=== PATIENT | female | born 1960 | race Caucasian/White ===

== ENCOUNTER 2020-03-02 08:28 | Outpatient (CLI) | payer BC, SELFPAY ==
--- NOTE | ~2020-03-02 | DEXA_ITS ---
Bone Density Report Name: Musa Kumar Age: 59 Sex: Female Ethnicity: White Date of : 1960 Indication: postmenopausal; prior fracture; Referring Provider: Froylan, Lisette Pereira Study: Bone densitometry was performed. Exam Date: March 02, 2020 Accession number: [id number] Bone Density: Region BMD T-score Z-score Classification AP Spine (L1-L4) 0.873 -1.6 -0.2 Osteopenia Femoral Neck (Left) 0.827 -0.2 1.1 Normal Total Hip (Left) 0.934 -0.1 0.9 Normal Total Hip Bilateral Avg 0.927 -0.2 0.8 Normal Femoral Neck (Right) 0.825 -0.2 1.1 Normal Total Hip (Right) 0.918 -0.2 0.8 Normal World Health Organization criteria for BMD impression classify patients as: Normal (T-score at or above -1.0), Osteopenia (T-score between -1.0 and -2.5), or Osteoporosis (T-score at or below -2.5). 10-year Fracture Risk(1): Major Osteoporotic Fracture 11% Hip Fracture 0.3% Reported Risk Factors: [place] (), Neck BMD=0.825, BMI=27.2, previous fracture (1) FRAX(R) Version 3.08. Fracture probability calculated for an untreated patient. Fracture probability may be lower if the patient has received treatment. Clinical Information Provided by Patient: Has had a low trauma fracture Has used the following medications: Calcium Patient maximum height was 63 Menopause Age: 44 No regular weight bearing exercise Drinks caffeinated beverages Onset of menses at age 14 Number of children 2 Impression: The patient has low bone mass, based on the Total Spine T-score. The patient has an estimated ten-year risk of hip fracture of 0.3% and an estimated ten-year risk of major fracture of 11%, based on the WHO FRAX algorithm. The patient has risk factors, including: previous fracture. Discussion: BONE DENSITY IS LOW AT ONE OR MORE SKELETAL SITES. This patient's lowest T-score is low at one or more skeletal sites. It meets the World Health Organization's (WHO) criteria for ?low bone mass? (T-score between -1.0 and -2.5). The patient's 10-year risk of fracture as calculated by FRAX is less than the threshold where pharmacological therapy is recommended by the National Osteoporosis Foundation (NOF). However, all treatment decisions require clinical judgment and consideration of individual patient factors, including patient preferences, comorbidities, previous drug use, risk factors not captured in the FRAX model (e.g., frailty, falls, vitamin D deficiency, increased bone turnover, interval significant decline in bone density) and possible under or overestimation of fracture risk by FRAX. The patient should follow a healthful lifestyle (good nutrition with adequate calcium and vitamin D, and appropriate weight-bearing exercise). Follow-Up: Consider repeating this study in 2 to 3 years to reassess this patient's status, or sooner if t
--- NOTE | ~2020-03-02 | MM_ITS ---
EXAMINATION: MM scrn jyothi implant BI w arik HISTORY: Screening mammogram TECHNIQUE: Craniocaudal and mediolateral oblique 3-D tomosynthesis images with implant displacement a nd synthetic 2-D images were generated. Craniocaudal and mediolateral oblique views of the breasts wi thout implant displacement were obtained using full field digital mammography. CAD analysis was submi tted and interpreted. COMPARISON: Comparison to multiple prior studies sequentially, with oldest reviewed study dated 12/18. BREAST PARENCHYMAL COMPOSITION: The breasts are heterogeneously dense, which may obscure small masses . FINDINGS: There are bilateral subglandular silicone implants. There is no evidence of suspicious mass , calcification, or architectural distortion to suggest malignancy in either breast. There has been n o suspicious interval change. IMPRESSION: 1. No mammographic evidence of malignancy. 2. Recommend routine screening mammography in one year. BI-RADS Category 1: Negative Reviewed, dictated and finalized at location A.
== END 2020-03-02 08:29 | disposition home or self-care (01) ==
LOC: ANHIMG 08:33
PROVIDERS: PCP Family Medicine; Visit Provider Nurse Practitioner Obstetrics & Gynecology
DX: Z12.31 Encounter for screening mammogram for malignant neoplasm of breast (principal); Z78.0 Asymptomatic menopausal state; M85.88 Other specified disorders of bone density and structure, other site
CPT/HCPCS: 77063; 77067; 77080

== ENCOUNTER 2021-04-19 09:03 | Outpatient (CLI) | payer BC, SELFPAY ==
--- NOTE | ~2021-04-19 | MM_ITS ---
EXAMINATION: MM scrn jyothi implant BI w arik HISTORY: Screening mammogram TECHNIQUE: Craniocaudal and mediolateral oblique 3-D tomosynthesis images with implant displacement a nd synthetic 2-D images were generated. Craniocaudal and mediolateral oblique views of the breasts wi thout implant displacement were obtained using full field digital mammography. CAD analysis was submi tted and interpreted. COMPARISON: Comparison to multiple prior studies sequentially, with oldest reviewed study dated 01/04. BREAST PARENCHYMAL COMPOSITION: There are scattered areas of fibroglandular density. FINDINGS: There are partially calcified bilateral subglandular silicone implants. There is no evidenc e of suspicious mass, calcification, or architectural distortion to suggest malignancy in either [address]. There has been no suspicious interval change. IMPRESSION: 1. No mammographic evidence of malignancy. 2. Recommend routine screening mammography in one year. BI-RADS Category 1: Negative Reviewed, dictated and finalized at location A.
== END 2021-04-19 09:04 | disposition home or self-care (01) ==
PROVIDERS: PCP Family Medicine; Visit Provider Nurse Practitioner Obstetrics & Gynecology
DX: Z12.31 Encounter for screening mammogram for malignant neoplasm of breast (principal)
CPT/HCPCS: 77063; 77067

== ENCOUNTER 2022-11-07 09:28 | Outpatient (CLI) | payer BC, SELFPAY ==
--- NOTE | ~2022-11-07 | MM_ITS ---
EXAMINATION: MM scrn jyothi implant BI w arik HISTORY: Screening mammogram TECHNIQUE: Craniocaudal and mediolateral oblique 3-D tomosynthesis images with implant displacement a nd synthetic 2-D images were generated. Craniocaudal and mediolateral oblique views of the breasts wi thout implant displacement were obtained using full field digital mammography. CAD analysis was submi tted and interpreted. COMPARISON: Comparison to multiple prior studies sequentially, with oldest reviewed study dated 01/04. BREAST PARENCHYMAL COMPOSITION: The breasts are heterogeneously dense, which may obscure small masses FINDINGS: There are bilateral subglandular partially calcified silicone implants. There is no evidenc e of suspicious mass, calcification, or architectural distortion to suggest malignancy in either [address]. There has been no suspicious interval change. IMPRESSION: 1. No mammographic evidence of malignancy. 2. Recommend routine screening mammography in one year. BI-RADS Category 1: Negative Reviewed, dictated and finalized at location A. 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
--- NOTE | ~2022-11-07 | DEXA_ITS ---
Bone Density Report Name: TEODORA ROSS Age: 61 Sex: Female Ethnicity: White Date of : 1960 Indication: postmenopausal; screening for osteoporosis; height loss; Referring Provider: HERI, ANNELIESE Pereira Study: Bone densitometry was performed. Exam Date: November 07, 2022 Accession number: [id number] Bone Density: Region BMD T-score Z-score Classification AP Spine(L1-L4) 0.904 -1.3 0.3 Osteopenia Femoral Neck (Left) 0.789 -0.5 0.9 Normal Total Hip (Left) 0.903 -0.3 0.8 Normal Femoral Neck (Right) 0.769 -0.7 0.7 Normal Total Hip (Right) 0.869 -0.6 0.5 Normal Total Hip Mean 0.886 -0.5 0.7 Normal World Health Organization criteria for BMD impression classify patients as: Normal (T-score at or above -1.0), Osteopenia (T-score between -1.0 and -2.5), or Osteoporosis (T-score at or below -2.5). 10-year Fracture Risk(1): Major Osteoporotic Fracture 7.3% Hip Fracture 0.4% Reported Risk Factors: [place] (), Neck BMD=0.769, BMI=24.7 (1) FRAX(R) Version 3.08. Fracture probability calculated for an untreated patient. Fracture probability may be lower if the patient has received treatment. Clinical Information Provided by Patient: Has used the following medications: Vitamin D, Calcium Patient maximum height was 63 Menopause Age: 44 Drinks caffeinated beverages Onset of menses at age 14 Number of children 2 Impression: The patient has low bone mass, based on the Total Spine T-score. The patient has an estimated ten-year risk of hip fracture of 0.4% and an estimated ten-year risk of major fracture of 7.3%, based on the WHO FRAX algorithm. Discussion: BONE DENSITY IS LOW AT ONE OR MORE SKELETAL SITES. This patient's lowest T-score is low at one or more skeletal sites. It meets the World Health Organization's (WHO) criteria for ?low bone mass? (T-score between -1.0 and -2.5). The patient's 10-year risk of fracture as calculated by FRAX is less than the threshold where pharmacological therapy is recommended by the National Osteoporosis Foundation (NOF). However, all treatment decisions require clinical judgment and consideration of individual patient factors, including patient preferences, comorbidities, previous drug use, risk factors not captured in the FRAX model (e.g., frailty, falls, vitamin D deficiency, increased bone turnover, interval significant decline in bone density) and possible under or overestimation of fracture risk by FRAX. The patient should follow a healthful lifestyle (good nutrition with adequate calcium and vitamin D, and appropriate weight-bearing exercise). Follow-Up: Consider repeating this study in 2 to 3 years to reassess this patient's status, or sooner if there is some new clinical indication. Reported by: SEB on 11/07/2022 10:00:00 A
== END 2022-11-07 09:29 | disposition home or self-care (01) ==
PROVIDERS: PCP Family Medicine; Visit Provider Nurse Practitioner Obstetrics & Gynecology
DX: Z12.31 Encounter for screening mammogram for malignant neoplasm of breast (principal); Z78.0 Asymptomatic menopausal state; M85.88 Other specified disorders of bone density and structure, other site
CPT/HCPCS: 77063; 77067; 77080

== ENCOUNTER 2023-10-16 14:27 | Outpatient (CLI) | payer BC, SELFPAY ==
--- NOTE | ~2023-10-16 | CT_ITS ---
EXAMINATION: CT sinus wo con DATE: 10/16/2023 15:07 INDICATION: Chronic sinusitis, headache, dizziness. TECHNIQUE: Computed tomography (CT) of the paranasal sinuses was performed without intravenous contra st. The dose-length product (DLP) was 313.83 mGy-cm. Iterative reconstruction was used. COMPARISON: None FINDINGS: There is normal development and pneumatization of the paranasal sinuses. The frontal, sphen oid, ethmoid, and maxillary sinuses are clear. The bilateral ostiomeatal complexes are patent. Visual ized soft tissues are unremarkable. Trace bilateral mastoid fluid. Degenerative changes in the bilate ral TMJs. IMPRESSION: Normal paranasal sinus findings. Trace bilateral mastoid effusions. Bilateral TMJ osteoarthritis. Reviewed, dictated and finalized at location K. 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
== END 2023-10-16 14:28 | disposition home or self-care (01) ==
PROVIDERS: PCP Family Medicine; Visit Provider Nurse Practitioner Family
DX: J32.9 Chronic sinusitis, unspecified (principal); M19.09 Primary osteoarthritis, other specified site
CPT/HCPCS: 70486

== ENCOUNTER 2023-11-08 10:12 | Outpatient (CLI) | payer BC, SELFPAY ==
--- NOTE | ~2023-11-08 | MM_ITS ---
EXAMINATION: MM scrn jyothi implant BI w arik HISTORY: Screening mammogram TECHNIQUE: Craniocaudal and mediolateral oblique 3-D tomosynthesis images with implant displacement a nd synthetic 2-D images were generated. Craniocaudal and mediolateral oblique views of the breasts wi thout implant displacement were obtained using full field digital mammography. CAD analysis was submi tted and interpreted. COMPARISON: 11/07/2022, 04/19/2021, 03/02/2020 bilateral implant screening mammogram examinations BREAST PARENCHYMAL COMPOSITION: The breasts are heterogeneously dense, which may obscure small masses . FINDINGS: Status post bilateral augmentation mammoplasty, with prominent calcifications along the per iphery of both implants. There is no evidence of suspicious mass, calcification, or architectural dis tortion to suggest malignancy in either breast. There has been no suspicious interval change. IMPRESSION: 1. No mammographic evidence of malignancy. 2. Recommend routine screening mammography in one year. BI-RADS Category 1: Negative Reviewed, dictated and finalized at location A. 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
== END 2023-11-08 10:13 | disposition home or self-care (01) ==
PROVIDERS: PCP Family Medicine; Visit Provider Nurse Practitioner
DX: Z12.31 Encounter for screening mammogram for malignant neoplasm of breast (principal)
CPT/HCPCS: 77063; 77067

== ENCOUNTER 2024-11-10 08:18 | Outpatient (CLI) | payer BC, SELFPAY ==
--- NOTE | ~2024-11-10 | DEXA_ITS ---
Bone Density Report Name: TEODORA ROSS Age: 63 Sex: Female Ethnicity: White Date of : 1960 Indication: osteopenia; height loss; Referring Provider: SUBHASH AGUIRRE Study: Bone densitometry was performed. Exam Date: November 10, 2024 Accession number: [id number] Bone Density: Region BMD T-score Z-score Classification AP Spine(L1-L4) 0.871 -1.6 0.2 Osteopenia Femoral Neck (Left) 0.755 -0.9 0.7 Normal Total Hip (Left) 0.851 -0.7 0.5 Normal Femoral Neck (Right) 0.740 -1.0 0.5 Normal Total Hip (Right) 0.825 -1.0 0.3 Normal Total Hip Mean 0.838 -0.9 0.4 Normal World Health Organization criteria for BMD impression classify patients as: Normal (T-score at or above -1.0), Osteopenia (T-score between -1.0 and -2.5), or Osteoporosis (T-score at or below -2.5). 10-year Fracture Risk(1): Major Osteoporotic Fracture 7.6% Hip Fracture 0.6% Reported Risk Factors: [place] (), Neck BMD=0.740, BMI=23.2 (1) FRAX(R) Version 3.08. Fracture probability calculated for an untreated patient. Fracture probability may be lower if the patient has received treatment. Previous Exams: Region Exam Age BMD T-score BMD Change BMD Change Date g/cm2 vs Baseline vs Previous AP Spine (L1-L4) 11/10/2024 63 0.871 -1.6 -0.002 (-0.3%) -0.033 (-3.7%) 11/07/2022 61 0.904 -1.3 0.031 (3.5%)* 0.031 (3.5%)* 03/02/2020 59 0.873 -1.6 Total Hip(Left) 11/10/2024 63 0.851 -0.7 -0.083 (-8.9%) -0.051 (-5.7%) 11/07/2022 61 0.903 -0.3 -0.031 (-3.4%) -0.031 (-3.4%) 03/02/2020 59 0.934 -0.1 Total Hip(Right) 11/10/2024 63 0.825 -1.0 -0.093 (-10.1% -0.044 (-5.0%) 11/07/2022 61 0.869 -0.6 -0.049 (-5.3%) -0.049 (-5.3%) 03/02/2020 59 0.918 -0.2 *Denotes significance at 95% confidence level, LSC for AP Spine = 0.022 g/cm2, LSC for Total Hip = 0.027 g/cm2 # Denotes dissimilar scan types or analysis methods Clinical Information Provided by Patient: Has used the following medications: Vitamin D, Calcium Patient maximum height was 63 Menopause Age: 44 Drinks caffeinated beverages Onset of menses at age 14 Number of children 2 Impression: The patient has low bone mass, based on the Total Spine T-score. The patient has an estimated ten-year risk of hip fracture of 0.6% and an estimated ten-year risk of major fracture of 7.6%, based on the WHO FRAX algorithm. No significant bone loss was observed. Discussion: BONE DENSITY IS LOW AT ONE OR MORE SKELETAL SITES. This patient's lowest T-score is low at one or more skeletal sites. It meets the World Health Organization's (WHO) criteria for ?low bone mass? (T-score between -1.0 and -2.5). The patient's 10-year risk of fracture as calculated by FRAX is less than the threshold where pharmacological therapy is recommended by the National Osteoporosis Foundation (NOF). However, all treatment decisions require clinical judgment and consideration of individual patient factors, including patient preferences, comorbidities, previous drug use, risk factors not captured in the FRAX model (e.g., frailty, falls, vitamin D deficiency, increased bone turnover, interval significant decline in bone density) and possible under or overestimation of fracture risk by FRAX. The patient should follow a healthful lifestyle (good nutrition with adequate calcium and vitamin D, and appropriate weight-bearing exercise). Follow-Up: Consider repeating this study in 2 to 3 years to reassess this patient's status, or sooner if there is some new clinical indication. Reported by: MAURO on 11/10/2024 9:10:00 AM. Reviewed, dictated and finalized at location AGypsy DUFFY
--- NOTE | ~2024-11-10 | MM_ITS ---
EXAMINATION TYPE: MM scrn yuri implant BI w arik COMPARISON: NONE REASON FOR STUDY: SCREENING YURI TECHNIQUE: Bilateral mediolateral oblique and craniocaudal views were obtained digitally with 3-D ma mmogram (digital breast tomosynthesis) with CAD. Computer-aided detection was utilized in evaluation of this examination. Implant displaced views were also performed. BREAST PARENCHYMAL COMPOSITION:Dense: The breasts are extremely dense, which lowers the sensitivity o f mammography. FINDINGS: Stable parenchymal pattern without discrete mass, architectural distortion or suspicious microcalcifi cations. Punctate calcifications are present, vascular in origin and benign in appearance. IMPRESSION: No mammographic or tomographic evidence to suggest the presence of malignancy. BI-RADS CATEGORY: BI-RADS Category 2: Benign findings. RECOMMENDATION: Yearly mammography is suggested. Reviewed, dictated and finalized at location A. 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
--- OUTSIDE RECORDS SUMMARY | 2024-11-17 17:44 | XMS_ITS | Data Portability ---
Author Organization [facility] [place] Address [address] [place] [address] Care Team Providers Care Communications Billing Analyst Name Role Phone KHUSHI BURKS Primary Care Provider [phone] Assessment Encounter Date Assessment Date Assessment LastModified by Organization Details LastModified Time 03/09/2021 03/09/2021 Annual gynecological exam performed. Patient will come back in a year unless there are new symptoms. Not available 03/09/2021 09:30:06 04/12/2022 04/12/2022 Annual gynecological exam performed. Patient will come back in a year unless there are new symptoms. [email or web address] Not available 04/12/2022 10:01:55 05/30/2023 05/30/2023 Annual gynecological exam performed. Patient will come back in a year unless there are new symptoms. [email or web address] Not available 05/30/2023 11:18:48 06/19/2024 06/19/2024 Annual gynecological exam performed. Patient will come back in a year unless there are new symptoms. Not available 06/19/2024 11:42:00 Plan of Treatment Reminders Order Date Submit Date Provider Last Modified By Organization Details Last Modified Time Details Appointments None recorded . Lab None recorded . Referral None recorded . Procedures None recorded . Surgeries None recorded . Imaging MAMMO, screenin g, digital, bilatera l [address] [facility], [address], [place], [address], 15:52:56 DEXA, axial skeleton + vertebra l fracture assessme nt [email or web address] [place] [address], [address], [place], [address], 4 15:52:56 Medication Orders fluoxeti ne 40 mg capsule 2020 021 [facility] [address], [id number] [place] [address], [address], 1 10:12:01 Premarin 0.625 mg/gram vaginal cream [address] [facility] [address], [address] [place] [address], [address], 3 11:19:26 valacycl ovir 500 mg tablet 2021 022 [facility] [address], [address] [place] [address], [address], 2 10:19:51 fluoxeti ne 40 mg capsule 2021 022 [facility] [address], [id number] [place] [address], [address], 2 10:16:08 valacycl ovir 500 mg tablet 2021 022 [facility] [address], [address] [place] [address], [address], 2 10:39:59 valacycl ovir 1 gram tablet 2023 024 [facility] [address], [id number] [place] [address], [address], 4 12:14:19 fluoxeti ne 40 mg capsule 2023 024 [facility] [address], [id number] [place] [address], [address], 4 12:16:52 Patient TargetsNo targets recorded. Patient InstructionsNo instructions recorded. Reason for Referral None Reported. Results Created Date Observation Date Name Description Value Unit Range Abnormal Flag Note LastModifiedBy Organization Detail LastModifiedTime 05/30/20 23 05/30/2023 IMAGE GUIDE D PAP AND HPV REGAR DLESS image guided Pap, HPV regardless of Pap result SEE RESULT S BELOW CASE REPOR T: Cytol ogy Gynec ologi phylicia Repor t Case: [id number] Aut[employer] willis cotton Provi miriam: Julieth Malagon, DENISE Colle cted: 05/30 1349 Order ing Locat ion: [place] [facility] Recei chito: 05/31 0617 First Scree n: Michael Calix, CT Rescr een: Janey Castellano, CT Speci men: Zander denton Pap - Image d, Cervi x STATE MENT OF ADEQU ACY: Satis facto ry for evalu ation Trans forma tion zone compo nent canno t be defin itive ly ident ified due to the prese nce of atrop hy or other hormo nal floyd es FINAL DIAGN OSIS: Negat manan for Intra epith elial Lesio n or Sunday delong (NIL) . Atrop hic cell bentley rhodes. Jacob cho wong d by Janey Castellano, CT on 2022 at 9:07 AM ----- ----- ----- ----- ----- ----- ----- ----- ----- ----- ----- ----- ----- ----- ----- ----- ----- ---- HPV RESUL TS: HPV mRNA E6/E7 : No HPV mRNA Detec eulalio NOTE: This high risk HPV mRNA assay detec ts fourt een high- risk HPV types (16, 18, 31, 33, 35, 39, 45, 51, 52, 56, 58, 59, 66, 68) witho ut diffe renti ation . COMME NT: This speci men was revie wed by a Cytot echno logis t and/o r Patho logis t (as indic ated in this repor t) after evalu ation using the Thinp rep Imagi ng Syste m. CLINI PHYLICIA INFOR MATIO N: Menst rual Statu s: LMP (if appli cable ): Clini phylicia Histo ry/Pr eviou s Pap: Type of Neopl nani (if appli cable ): Signi fican t Clini phylicia Findi ngs: Other Histo ry: Hormo joão (if appli cable ): PAP EDUCA MARIA FERNANDA L NOTE: The Pap Test is a scree corrie test with an inher ent false negat manan rate. Liqui d-bas ed sampl ing may decre ase, but will not elimi sindhu, false negat manan resul ts. A negat manan resul t does not precl ude the prese nce and/o r devel opmen t of disea se, since the prese nce of abnor mal cells in the sampl e depen ds on the locat ion of the lesio n and sampl ing techn ique. Cici nued regul ar scree corrie is the best metho d of cance r preve ntion . If repor eulalio cytol ogic findi ng do not corre late with physi phylicia and/o r histo rical findi ngs, furth er inves tigat ion is recom zonia d, as clini robyn warrshanell nted. Not Available [facility] (Lab) [address] [facility], [place], [address], 06/01/2023 10:10:43 06/19/20 24 06/19/2024 IMAGE GUIDE D PAP AND HPV REGAR DLESS image guided Pap, HPV regardless of Pap result SEE RESULT S BELOW CASE REPOR T: Cytol ogy Gynec ologi phylicia Repor t Case: [id number] Autho willis g Provi miriam: Madhuri Cordero MD Colle cted: 06/19 1425 Order ing Locat ion: [place] Path[facility] [place] Recei chito: 06/20 0050 First Scree n: Janey Castellano ay, CT Speci men: Scree corrie Pap - Image d, Cervi x STATE MENT OF ADEQU ACY: Satis facto ry for evalu ation Trans forma tion zone compo nent canno t be defin itive ly ident ified due to the prese nce of atrop hy or other hormo nal floyd es ----- ----- ----- ----- ----- ----- ----- ----- ----- ----- ----- ----- ----- ----- ----- ----- ----- ---- FINAL DIAGN OSIS: Negat manan for Intra epith elial Lesio n or Sunday delong (NIL) . Atrop hic holly hagan rn. Elect eulogio lainez by Janey Castellano, CT on 024 at 9:01 AM ----- ----- ----- ----- ----- ----- ----- ----- ----- ----- ----- ----- ----- ----- ----- ----- ----- ---- HPV RESUL TS: HPV mRNA E6/E7 : No HPV mRNA Detec eulalio NOTE: This high risk HPV mRNA assay detec ts fourt een high- risk HPV types (16, 18, 31, 33, 35, 39, 45, 51, 52, 56, 58, 59, 66, 68) witho ut diffe renti ation . COMME NT: This speci men was revie wed by a Cytot echno logis t and/o r Patho logis t (as indic ated in this repor t) after evalu ation using the Thinp rep Imagi ng Syste m. CLINI PHYLICIA INFOR MATIO N: Menst rual Statu s: LMP (if appli cable ): Clini phylicia Histo ry/Pr eviou s Pap: Type of Neopl nani (if appli cable ): Signi jaimie t Clini phylicia Findi ngs: Other Histo ry: Hormo joão (if appli cable ): PAP EDUCA MARIA FERNANDA L NOTE: The Pap Test is a scree corrie test with an inher ent false negat manan rate. Liqui d-bas ed sampl ing may decre ase, but will not elimi sindhu, false negat manan resul ts. A negat manan resul t does not precl ude the prese nce and/o r devel opmen t of disea se, since the prese nce of abnor mal cells in the sampl e depen ds on the locat ion of the lesio n and sampl ing techn ique. Cici nued regul ar scree corrie is the best metho d of cance r preve ntion . If repor eulalio cytol ogic findi ng do not corre late with physi phylicia and/o r histo rical findi ngs, furth er inves tigat ion is recom zonia d, as clini robyn mariee nted. Not Available [facility] ([facility]) [address] [facility], [place], [address], 06/26/2024 10:06:28 04/22/20 21 MAMMO , scree corrie, bilat eral No observ ation record ed. [facility] [address], [place], [address], 04/28/2021 22:40:00 11/07/20 22 11/07/2022 MAMMO , scree corrie, bilat eral No observ ation record ed. [address] [address], [place], [address], 2022 11:11:47 11/10/20 24 11/10/2024 MAMMO , scree corrie, bilat eral No observ ation record ed. [address], [address], 11/10/2024 16:38:28 11/13/20 24 11/10/2024 DEXA, axial skele ton + verte bral fract ure asses sment No observ ation record ed. [email or web address], [address], 11/13/2024 20:27:24 Result Notes None recorded. Problems Name Problem SNOMED Code Status Onset Date Resolution Date Notes Provider Name and Address Organization Details Recorded Time Screenin g for malignan t neoplasm of cervix Completed 201104/11/2022 Pap Smear;Pra ctice ID: 0001 Delilah Chow [facility] 2 16:19:41 Screenin g for malignan t neoplasm of rectum Completed 201104/11/2022 Screening for malignant neoplasms of the rectum;Pr actice ID: 0001 Delilah Chow [facility] 2 16:19:42 Leukocyt osis [id number] Completed 201304/11/2022 LEUKOCYTO SIS NOS;Pract ice ID: 0001 Delilah Chow [facility] 2 16:19:41 Speciali zed medical examinat ion Completed 201304/11/2022 Routine gynecolog ical examinati on;Practi ce ID: 0001 Delilah Chow [facility] 2 16:19:42 Urinary tract infectio us disease [id number] Completed 201404/11/2022 Urinary tract infection , site not specified ;Practice ID: 0001 Delilah park [facility] 2 16:19:42 Microsco pic hematuri a [id number] Completed 201404/11/2022 HEMATURIA MICROSCOP IC;Practi ce ID: 0001 Delilah Chow [facility] 2 16:19:41 Adult health examinat ion Completed 201404/11/2022 Routine general medical examinati on at a health care facility; Practice ID: 0001 Delilah Chow [facility] 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 2 16:19:[address] Concept Completed 201804/11/2022 Encntr for general adult medical exam w/o abnormal findings; Recorded Elsewhere : No Locati on: [facility] So urce: EHR Chron ic: N Practic e ID: 0001 Bill able Time: 09:30:00 AM Delilah Chow [facility] 2 16:19:42 Atypical squamous cells of undeterm ined signific ance on cervical Papanico laou smear [id number] Completed 201404/11/2022 Papanicol aou smear of cervix with atypical squamous cells of undetermi beata significa nce (ASC-US); Recorded Elsewhere : No Locati on: [facility] So urce: EHR Chron ic: N Practic e ID: 0001 Bill able Time: 10:00:00 AM Delilah Chow [facility] 2 16:19:42 Atypical glandula r cells on cervical Papanico laou smear [id number] Completed 201404/11/2022 Abnormal glandular Papanicol aou smear of cervix;Re corded Elsewhere : No Locati on: [facility] So urce: EHR Chron ic: N Practic e ID: 0001 Bill able Time: 10:00:00 AM Delilah Chow [facility] 2 16:19:42 Increase d frequenc y of urinatio n [id number] Completed 201404/11/2022 Urinary frequency ;Recorded Elsewhere : No Locati on: [facility] So urce: EHR Chron ic: N Practic e ID: 0001 Bill able Time: 02:45:00 PM Delilah Chow [facility] 2 16:19:41 Screenin g for malignan t neoplasm of colon Completed 201004/11/2022 Special screening for malignant neoplasms , colon;Pra ctice ID: 0001 Delilah Chow [facility] 2 16:19:41 Urinary incontin ence [id number] Completed 201004/11/2022 Urinary incontine nce, unspecifi ed;Practi ce ID: 0001 Delilah Chow [facility], [facility] 2 16:19:41 Problem Notes None recorded. Procedures Surgical History Date Name Laterality Status Provider Name and Address Organization Details Recorded Time 10/19/20 23 Date of Last Mammogram completed [facility] 06/19/2024 11:45:07 05/30/20 23 Date of Last Pap Smear completed Wendy [facility] 06/19/2024 11:44:15 02/18/20 20 completed Lisette Galeano, [facility]- [address], [place], [address], [facility] 03/09/2021 10:12:50 laparoscopic sleeve gastrectomy completed Stefani [facility] 02/25/2020 10:29:31 augmentation mammoplasty completed Stefani Alves [facility] 02/25/2020 10:29:46 Bariatric Surgery completed Kristen Charles [facility] 03/09/2021 09:31:25 Imaging Results Imaging Date Name Status LastModified by Organiz ation Details LastModified Time 04/22/2021 MAMMO, screening, bilateral completed [facility] [address], [place], [address], 04/28/2021 22:40:00 11/07/2022 MAMMO, screening, bilateral completed [facility] [address], [place], [address], 2022 11:11:47 11/10/2024 MAMMO, screening, bilateral completed [facility] [address], [place], [address], 11/10/2024 16:38:28 11/10/2024 DEXA, axial skeleton + vertebral fracture assessment active [address] [facility] [address], [place], [address], 11/13/2024 20:27:24 Procedure Notes None recorded. Medical Equipment None Reported. Allergies No known drug allergies Medications Name Sig Start Date Stop Date Status Note LastModified by Organization Details LastModified Time fluoxetin e 40 mg capsule TAKE 1 CAPSULE BY MOUTH ONCE DAILY IN THE MORNING 2023 active Not Available Not Available Not Avai lable azithromy angelita 250 mg tablet TAKE 2 TABLETS BY MOUTH ON DAY 1, AND THEN TAKE 1 TABLET BY MOUTH ONCE A DAY ON DAY 2 THROUGH DAY 5 05/30 completed Not Available Not Available Not Available Vitamin B-1 50 mg tablet 02/12 completed Prescrib ed Elsewher e: Yes Loca tion: [facility] odify By: reta Vazquez r DateTime : 12/10/19 14 10:30:00 AM Not Available Not Available Not Available metoprolo l succinate ER 50 mg tablet,ex tended release 24 hr take 1 tablet by oral route every day 02/12 completed Prescrib ed Elsewher e: Yes Loca tion: [facility] odify By: reta Vazquez r DateTime : 12/14/19 15 10:30:00 AM Not Available Not Available Not Available valacyclo vir 1 gram tablet TAKE 1 TABLET BY MOUTH EVERY 12 HOURS active Not Available Not Available No t Available phentermi ne 15 mg capsule TAKE 1 CAPSULE BY MOUTH ONCE DAILY BEFORE BREAKFAS T 04/12 completed Not Available Not Available Not Available folic acid 20 mg capsule 12/14 completed Prescrib ed Elsewher e: Yes [facility] By: lara prince DateTime : 12/10/19 14 10:30:00 AM Not Available Not Available Not Available Detrol LA 4 mg capsule,e xtended release take 1 capsule (4MG) by oral route every day 02/12 completed Prescrib ed Elsewher e: No Locat ion: [facility] odify By: reta Vazquez r DateTime : 12/15/19 16 10:00:00 AM Not Available Not Available Not Available valacyclo vir 500 mg tablet TAKE 1 TABLET BY MOUTH ONCE DAILY WITH A MEAL active Not Available Not Available No t Available phentermi ne 30 mg capsule TAKE 1 CAPSULE BY MOUTH ONCE DAILY BEFORE BREAKFAS T 04/12 completed Not Available Not Available Not Available omeprazol e 10 mg capsule,d elayed release take 2 capsule by oral route every day before a meal 12/10 completed Prescrib ed Elsewher e: Yes Loca tion: [facility] odify By: lara prince DateTime : 07/04/20 12 10:00:00 AM Not Available Not Available Not Available Cipro 500 mg tablet take 1 tablet by oral route every 12 hours 02/12 completed Prescrib ed Elsewher e: No Locat ion: [facility] odify By: reta bailey DateTime : 07/05/20 15 04:22:29 PM Not Available Not Available Not Available buspirone 10 mg tablet TAKE 1 TABLET BY MOUTH TWICE DAILY active Not Available Not Available No t Available garlic capsule 12/10 completed Prescrib ed Elsewher e: Yes Loca tion: [facility] odify By: lara prince DateTime : 07/03/20 12 11:10:07 AM Not Available Not Available Not Available buspirone 7.5 mg tablet 02/24 completed Not Available Not Available Not Available furosemid e 20 mg tablet take 1 tablet (20MG) by oral route every day 02/12 completed Prescrib ed Elsewher e: Yes Loca tion: [facility] odify By: reta Vazquez r DateTime : 12/10/19 14 10:30:00 AM Not Available Not Available Not Available cefdinir 300 mg capsule TAKE 1 CAPSULE BY MOUTH EVERY 12 HOURS FOR 10 DAYS 04/12 completed Not Available Not Available Not Available multivita min capsule Take by oral route. 05/30 completed Not Available Not Available Not Available amoxicill in 875 mg-potass ium clavulana te 125 mg tablet TAKE 1 TABLET BY MOUTH TWICE DAILY 06/19 completed Not Available Not Available Not Available Bactrim DS 800 mg-160 mg tablet take 1 tablet by oral route every 12 hours 07/05 completed Prescrib ed Elsewher e: No Locat ion: [facility] odify By: evgeny thacker DateTime : 06/29/20 15 10:00:00 AM Not Available Not Available Not Available Allergy Medicine 25 mg capsule take 2 capsule by oral route every 4 - 6 hours as needed 05/30 completed Prescrib ed Elsewher e: Yes [facility] By: lynn thacker DateTime : 02/18/20 19 09:30:00 AM Not Available Not Available Not Available Calcium 500 + D 500 mg-5 mcg (200 unit) tablet 05/30 completed Prescrib ed Elsewher e: Yes Loca tion: [facility] odify By: lynn thacker DateTime : 02/18/20 19 09:30:00 AM Not Available Not Available Not Available Premarin 0.625 mg/gram vaginal cream Insert 0.5gm vaginall y at bedtime nightly x 14 nights; then, use 2x/wk for maintena nce. 05/30 completed Not Available Not Available Not Available nitrofura ntoin monohydra te/macroc rystals 100 mg capsule TAKE 1 CAPSULE BY MOUTH EVERY 12 HOURS WITH MEALS 03/09 completed Not Available Not Available Not Available Vesicare 5 mg tablet take 1 tablet (5MG) by oral route every 12 hours 12/10 completed Prescrib ed Elsewher e: No Locat ion: [facility] odify By: lara prince DateTime : 07/03/20 12 11:10:07 AM Not Available Not Available Not Available Infuvite Adult 3300 unit-150 mcg/10 mL intraveno us solution 12/10 completed Prescrib ed Elsewher e: Yes Loca tion: [facility] odify By: lara prince DateTime : 07/03/20 12 11:10:07 AM Not Available Not Available Not Available Calcio Marce 500 mg tablet 12/10 completed Prescrib ed Elsewher e: Yes Loca tion: [facility] odify By: lara prince DateTime : 07/03/20 12 11:10:07 AM Not Available Not Available Not Available fluoxetin e 03/08 completed Not Available Not Available Not Available buspirone 03/09 completed Not Available Not Available Not Available Calcium 500 03/09 completed Not Available Not Available Not Available Keflex 750 mg capsule take 1 capsule (750MG) by oral route 2 times every day 12/10 completed Prescrib ed Elsewher e: No Locat ion: [facility] odify By: lara prince DateTime : 08/12/20 12 09:10:55 AM Not Available Not Available Not Available B Complex 1.7 mg-20 mg-2 mg-1.2 mg/mL sublingua l liquid 12/10 completed Prescrib ed Elsewher e: Yes Loca tion: [facility] odify By: lara prince DateTime : 07/04/20 12 10:00:00 AM Not Available Not Available Not Available 10 mg-[address] by Topical route every USE ASS NEEDED WITH INTERCOU RSE 02/12 completed Prescrib ed Elsewher e: Yes Loca tion: [facility] odify By: reta Vazquez r DateTime : 12/10/19 14 10:30:00 AM Not Available Not Available Not Available Claritin Liqui-Gel 10 mg capsule 02/12 completed Prescrib ed Elsewher e: Yes Loca tion: [facility] odify By: reta Vazquez r DateTime : 12/14/19 15 10:30:00 AM Not Available Not Available Not Available Fish Oil 100 mg-160 mg-1,000 mg capsule 12/10 completed Prescrib ed Elsewher e: Yes Loca tion: [facility] odify By: lara prince DateTime : 07/03/20 12 11:10:07 AM Not Available Not Available Not Available Multi Vitamin 9 mg iron/15 mL oral liquid 04/12 completed Prescrib ed Elsewher e: Yes Loca tion: [facility] odify By: lynn thacker DateTime : 02/18/20 19 09:30:00 AM Not Available Not Available Not Available Allergy 03/09 completed Not Available Not Available Not Available 24 Hour Allergy Relief 50 mcg/actua tion nasal spray,ary pension 05/30 completed Not Available Not Available Not Available Shingrix (PF) 50 mcg/0.5 mL intramusc ular suspensio n, kit 02/24 completed Not Available Not Available Not Available Fluzone Quad (PF) 60 mcg (15 mcg x 4)/0.5 mL IM syringe 02/24 completed Not Available Not Available Not Available Vitals Date Recorded Body height Body mass index (BMI) Body weight Systolic blood pressure Diastolic blood pressure Provider Name and Address Organization Details Last Updated DateTime 03/09/2021 157.48 cm 27.3 kg/m2 97980.26 g 135 mm[Hg] 81 mm[Hg] Kristen Araceli [facility] 1 09:40:06 Date Recorded Body height Body mass index (BMI) Body weight Systolic blood pressure Diastolic blood pressure Provider Name and Address Organization Details Last Updated DateTime 04/12/2022 155.58 cm 25.5 kg/m2 85021.56 g 128 mm[Hg] 78 mm[Hg] [facility] 10:03:27 Date Recorded Body height Body weight Body mass index (BMI) Provider Name and Address Organization Details Last Updated DateTime 07/13/2022 155.58 cm 77369.07 g 24.9 kg/m2 Delilah [facility] 07/13/2022 10:31:42 Date Recorded Systolic blood pressure Diastolic blood pressure Provider Name and Address Organization Details Last Updated DateTime 07/13/2022 122 mm[Hg] 82 mm[Hg] Lisette Galeano, [facility]- [address], [place], [address], [facility] 07/13/2022 14:05:36 Date Recorded Body height Body mass index (BMI) Body weight Systolic blood pressure Diastolic blood pressure Provider Name and Address Organization Details Last Updated DateTime 05/30/2023 155.58 cm 23.8 kg/m2 02274.23 g 127 mm[Hg] 76 mm[Hg] Catherine Li [facility] 3 11:19:04 Date Recorded Body height Body mass index (BMI) Body weight Systolic blood pressure Diastolic blood pressure Provider Name and Address Organization Details Last Updated DateTime 06/19/2024 155.58 cm 23.4 kg/m2 42649.05 g 137 mm[Hg] 73 mm[Hg] Wendy Green [facility] 4 11:43:27 Social History Question Answer Notes LastModified by Organizat ion Details LastModified Time Tobacco Smoking Status Never Smoker [place], [facility] 05/30/2023 10:50:59 Do You Have An Advance Directive? No Information n ot available 03/09/2021 What Is Your Level Of Alcohol Consumption? None Information not available 03/09/2021 Are You Blind Or Do You Have Difficulty Seeing? No Information n ot available 03/09/2021 What Is Your Level Of Caffeine Consumption? Moderate Information not available 03/09/2021 How Much Tobacco Do You Chew? None Information not available 03/09/2021 In The 14 Days Before Symptom Onset, Have You Had Close Contact With A Laboratory-confirm ed COVID-19 While That Case Was Ill? No Information n ot available 03/09/2021 In The 14 Days Before Symptom Onset, Have You Had Close Contact With A Person Who Is Under Investigation For COVID-19 While That Person Was Ill? No Information not available 03/09/2021 Have You Been To An Area Known To Be High Risk For COVID-19? No Information not available 03/09/2021 Are You Deaf Or Do You Have Serious Difficulty Hearing? No Information not available 03/09/2021 What Type Of Diet Are You Following? REGULAR Information n ot available 03/09/2021 What Is The Highest Grade Or Level Of School You Have Completed Or The Highest Degree You Have Received? [id number] Information not available 03/09/2021 What Is Your Occupation? Retired Information not available 03/09/2021 Are There Any Guns Present In Your Home? Yes Information not available 03/09/2021 Do You Use Protection During Sex? No Information not available 03/09/2021 Do You Use Your Seat Belt Or Car Seat Routinely? Yes Information not available 03/09/2021 Do You Have Smoke And Carbon Monoxide Detectors In Your Home? Yes Information not available 03/09/2021 How Much Tobacco Do You Smoke? No Information not available 03/09/2021 Do You Feel Stressed (tense, Restless, Nervous, Or Anxious, Or Unable To Sleep At Night)? [id number] Information not available 03/09/2021 Do You Use Any Illicit Or Recreational Drugs? No Information not available 03/09/2021 Do You Use Sunscreen Routinely? Yes Information not available 03/09/2021 Have You Used IV Drugs? No Information not available 03/09/2021 Sex: Unknown Functional Status Question Answer Note LastModified by Organizat ion Details LastModified Time Do you have difficulty walking or climbing stairs? No Information not available 05/30/2023 Are you able to walk? YESWOREST Information not available 03/09/2021 Are you able to care for yourself? Yes [email or web address] Information not available 05/30/2023 Do you have difficulty dressing or bathing? No [email or web address] Information not available 05/30/2023 What is your exercise level? Moderate Information not available 06/19/2024 Mental Status None recorded. Family History Relationship Description Onset Age of this Age Resolved Age Notes LastModified by Organization Details LastModified Time Mother Diabetes mellitus [email or web address] Not available 2019 10:30:41 Maternal Grandmother Type 1 diabetes mellitus Not available 2023 11:01:21 Maternal Aunt Malignant tumor of breast 45 [email or web address] Not available 2023 11:01:21 Paternal Aunt Malignant tumor of ovary 60 [email or web address] Not available 2023 11:01:21 Medical History Condition Response History of abnormal pap Y Hypertension Y Gynecological History Statement/Question Response Abnormal Pap Yes Date of Last Mammogram 10/19/2023 Date of LMP 07/03/2006 On BCP's at Conception? N N STIs/STDs N HPV Vaccine N 15 Current Control Method Menopause Age at First Child 18 If Post Menopausal, Age at Menopause Date of Last Colonoscopy Sexually Active? Y Menses Monthly N Date of DEXA bone scan 03/02/2020 Age of first menstrual cycle 12 Date of Last Pap Smear 05/30/2023 Sexual Problems? Y 02/18/2020 N Obstetrics History GPAL:G 2 P 0 0 0 2 Type Value Living 2 Total 2 Past Encounters Encounter ID Performer Location Encounter Start Date Encounter Closed Date Diagnosis/Indication Diagnosis SNOMED-CT Code Diagnosis ICD10 Code [id number] Lisette Galeano [facility] [address],[place] [address] 02/25/2020 10:19:33 02/26/2020 13:03:31 Menopausal symptom 77130327 N95.1 Routine gy necologic examination done 4350581717 9101 Z01.419 Menopausal flushing 1983 58929 N95.1 [id number] Lisette Galeano [facility] [address] [place] [address] 03/09/2021 09:26:33 03/09/2021 10:18:50 Gynecologic examination 43995209 Z01.419 Generalize d anxiety disorder 59684910 F41.1 N95.1 [id number] Lisette Galeano [facility] [address],[place] [address] 04/12/2022 09:36:42 04/12/2022 10:33:59 Gynecologic examination 42325553 Z01.419 Depressive disorder 3548 9007 F32.A Herpes zoster 1345201 B0 2.9 Dyspareunia 62144408 N94 .10 N95.2 [id number] Lisette Galeano , [facility] [address],[place] [address] 07/13/2022 10:19:11 07/13/2022 14:13:44 Herpes zoster 0464304 B02.9 Dyspareunia 30180545 N94 .10 N95.2 [id number] Julieth Malagon, [facility] [address],[place] [address] 05/30/2023 10:50:47 05/30/2023 12:22:44 Screening for malignant neoplasm of breast 505929331 Z12.39 Screening for malignant neoplasm of colon 248775259 Z12.11 Screening for osteoporosis 221401640 Z13.820 Gynecologi c examination 81470161 Z01.419 [id number] Awais Cordero MD [place] [address],[place] [address] 06/19/2024 11:00:38 06/19/2024 12:27:14 Herpes zoster 0215212 B02.9 Depressive disorder 3548 9007 F32.A Gynecologi c examination 51824697 Z01.419 Health Concerns Section Related Observation LastModified by Organization Detai ls LastModified Time None Recorded Concern Status LastModified by Organization Details LastModified Time None Recorded Advance Directives Directive N: Payers Encounter Date Sequence Insurance Name Policy Number Policy Gordon Covered Member ID Gordon Member ID Guarantor Name 03/09/2021 1 [place] [id number] Jacek Hammer Kumar [id number] Jacek Kumar 04/12/2022 1 [id number] Jacek Hammer Kumar [id number] Jacek Kumar 07/13/2022 1 [place] [id number] Jacek Hammer Kumar [id number] Jacek Kumar 05/30/2023 1 [place] [id number] Jacek Kumar [id number] Jacek Kumar 06/19/2024 1 [facility] ([place] [id number] Jacek Kumar [id number] Jacek Kumar Notes Date Note Type Note Provider Name and Address Organization Details Recorded Time 03/09/2021 text/html 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 Post-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 ed bypatient.Menopausal Symptoms:no menopausal symptoms; normal vaginal lubrication Vaginal Bleeding:history of menopause having occurred; no history of post menopausal bleeding Urinary Symptoms:no hematuria; no incontinence; no nocturia; no urinary frequency Vulva:no genital lesion; no vulvar atrophy Vagina:normal vaginal discharge; no vaginal atrophy Breast:no breast lump; no nipple discharge; no breast pain Sexual Complaints:no sexual complaints Psychological Symptoms:no depression; no anxiety Preventive Measures:encourage regular mammograms starting age 40; encourage self breast examination; encourage regular exercise; encourage no tobacco use; needs to schedule mammogram; history of recent colonoscopy; Dexa 2020 one point of osteopenia. LAKSHMI Liao [address], [place], [address], [facility] 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 ed bypatient.Menopausal Symptoms:no menopausal symptoms; normal vaginal lubrication Vaginal Bleeding:history of menopause having occurred; no history of post menopausal bleeding Urinary Symptoms:no hematuria; no incontinence; no nocturia; no urinary frequency Vulva:no genital lesion; no vulvar atrophy Vagina:normal vaginal discharge; no vaginal atrophy Breast:no breast lump; no nipple discharge; no breast pain Sexual Complaints:no sexual complaints;pain during intercourse Psychological Symptoms:no depression; no anxiety Preventive Measures:encourage regular mammograms starting age 40; encourage self breast examination; encourage regular exercise; encourage no tobacco use; needs to schedule mammogram; history of recent colonoscopy; needs to schedule bone density Having shingles outbreaksGot vaccinationLower back one small areaHappens during high stress times LAKSHMI Liao [address], [place], [address], [facility] 04/12/2022 10:33:09 07/13/2022 text/html Here today for medication check. CHARLINE Liao- [address], [place], [address], [facility] 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 bypatient.Menopausal Symptoms:no menopausal symptoms; normal vaginal lubrication Vaginal Bleeding:history of menopause having occurred; no history of post menopausal bleeding Urinary Symptoms:no hematuria; no incontinence; no nocturia; no urinary frequency Vulva:no genital lesion; no vulvar atrophy Vagina:normal vaginal discharge; no vaginal atrophy Breast:no breast lump; no nipple discharge; no breast pain Sexual Complaints:no sexual complaints Psychological Symptoms:no depression; no anxiety Preventive Measures:encourage regular mammograms starting age 40; encourage self breast examination; encourage regular exercise; encourage no tobacco use; needs to schedule mammogram; needs to schedule colonoscopy; needs to schedule bone density CHARLINE Carbajal [address], [place], [address], [facility] 05/30/2023 12:18:43 06/19/2024 text/html Annual GYNReport ed bypatient.History:no gynecologic complaints Urinary symptoms:No hematuria Vulva:No genital lesion Vagina:Normal vaginal discharge Breast:No breast pain; No breast lump Sexual complaints:No sexual complaints Menopausal Symptoms:No menopausal symptoms Psychological symptoms:Anxiety; treated Preventive measures:Encourage self breast examination; Encourage regular exercise Awais Cordero MD [address], [place], [address], [facility] 06/19/2024 12:24:57 OBGyn Episode Ob Episode Information Episode Created Date Number of Fetuses Patient Bloodtype Patient rh Status Prepregnancy Weight lbs Domestic Partner Domestic Partner Phone Father Name Manager Lsw Status 02/25/20 20 1 CLOSED Fetus Data First Name Last Name Admitted to NICU Weight (g) Sex Living Outcome Pediatric Complications Fetus ID Race Codes Race Delivery Type 3628.73 6 F 104 Primary Jaqui Calculation JAQUI Calculation Method Initial Jaqui Date Initial Exam Date Initial Exam Provider Initial Ultrasound Date Last Menstrual Period Date Ultra Sound Weeks Gestation Conception by IVF Embryo Age at Transfer Date of Transfer 0 Eighteen To Twenty Week Jaqui Update Ultra Sound Date Fundal Height At Umbil Quickening Date Ultra Sound Latest Weeks Gestation Final Jaqui Confirmed By Final Jaqui Confirmed Date Final Jaqui Date Ultra Sound Latest Days Gestation 0 0 Menstrual History Last Menstrual Date Menses Monthly On Bcp Conception Prior Menses Frequency Hcg Plus Date Menarche Onset Age Delivery Information Delivery Date Delivery Type Labor Anesthesia Weeks Gestation Incision Type Labor Labor Length Hrs Delivered By Post Complications Tubal Sterilization Discharge Date Comments 4 Discharge Information Feeding Method Contraceptive Method Maternal HG B and HCT Levels Ob Episode Information Episode Created Date Number of Fetuses Patient Bloodtype Patient rh Status Prepregnancy Weight lbs Domestic Partner Domestic Partner Phone Father Name Manager Lsw Status 02/25/20 20 1 CLOSED Fetus Data First Name Last Name Admitted to NICU Weight (g) Sex Living Outcome Pediatric Complications Fetus ID Race Codes Race Delivery Type 4819.41 5 M 106 Vaginal Delivery Jaqui Calculation JAQUI Calculation Method Initial Jaqui Date Initial Exam Date Initial Exam Provider Initial Ultrasound Date Last Menstrual Period Date Ultra Sound Weeks Gestation Conception by IVF Embryo Age at Transfer Date of Transfer 0 Eighteen To Twenty Week Jaqui Update Ultra Sound Date Fundal Height At Umbil Quickening Date Ultra Sound Latest Weeks Gestation Final Jaqui Confirmed By Final Jaqui Confirmed Date Final Jaqui Date Ultra Sound Latest Days Gestation 0 0 Menstrual History Last Menstrual Date Menses Monthly On Bcp Conception Prior Menses Frequency Hcg Plus Date Menarche Onset Age Delivery Information Delivery Date Delivery Type Labor Anesthesia Weeks Gestation Incision Type Labor Labor Length Hrs Delivered By Post Complications Tubal Sterilization Discharge Date Comments 9 Discharge Information Feeding Method Contraceptive Method Maternal HG B and HCT Levels Ob Episode Information Episode Created Date Number of Fetuses Patient Bloodtype Patient rh Status Prepregnancy Weight lbs Domestic Partner Domestic Partner Phone Father Name Manager Lsw Status 02/25/20 20 1 DELETED Jaqui Calculation JAQUI Calculation Method Initial Jaqui Date Initial Exam Date Initial Exam Provider Initial Ultrasound Date Last Menstrual Period Date Ultra Sound Weeks Gestation Conception by IVF Embryo Age at Transfer Date of Transfer 0 Eighteen To Twenty Week Jaqui Update Ultra Sound Date Fundal Height At Umbil Quickening Date Ultra Sound Latest Weeks Gestation Final Jaqui Confirmed By Final Jaqui Confirmed Date Final Jaqui Date Ultra Sound Latest Days Gestation 0 0 Menstrual History Last Menstrual Date Menses Monthly On Bcp Conception Prior Menses Frequency Hcg Plus Date Menarche Onset Age Delivery Information Delivery Date Delivery Type Labor Anesthesia Weeks Gestation Incision Type Labor Labor Length Hrs Delivered By Post Complications Tubal Sterilization Discharge Date Comments 4 adopted Discharge Information Feeding Method Contraceptive Method Maternal HG B and HCT Levels
== END 2024-11-10 08:19 | disposition home or self-care (01) ==
PROVIDERS: PCP Family Medicine; Visit Provider Obstetrics & Gynecology
DX: Z12.31 Encounter for screening mammogram for malignant neoplasm of breast (principal); M85.88 Other specified disorders of bone density and structure, other site; Z13.820 Encounter for screening for osteoporosis
CPT/HCPCS: 77063; 77067; 77080

== ENCOUNTER 2025-02-02 11:03 | Outpatient (CLI) | payer BC, SELFPAY ==
--- NOTE | ~2025-02-02 | XR_ITS ---
XR cervical spine 4-5V Ordering provider: Kevin Dean History: . (w obliques) Neck pain . Comparison: None. FINDINGS: VERTEBRAL BODIES: Normal height and alignment. No visible fracture or subluxation. The dens is intact . DISK SPACES: Degenerative disc changes seen at the level of C4-C5. Narrowing of the disc space at the level of C3-C4, C4-C5, C5-C6 and C6-C7. Multilevel facet joint disease. Multilevel uncovertebral ethan nt osteoarthritic changes. Narrowing of the left foramina at the level of C2-C3, C3-C4 and C4-C5. PARASPINOUS SOFT TISSUES: No prevertebral soft tissue swelling. IMPRESSION: No acute osseous abnormality cervical spine. Multilevel degenerative disc disease. Reviewed, dictated and finalized at location A.
--- OUTSIDE RECORDS SUMMARY | 2025-02-02 13:46 | XMS_ITS | Referral Summary ---
Author Organization [facility] Address [address] [place] [address] Care Team Providers Care Public Health Advisor Name Role Phone Anurag Beasley MD Primary Care Provider [phone] [facility],non-owned Affiliates and Associated Physician Practices is amultiple site organization consisting of ambulatory clinics and hospital sitesin [place], [place], [place] and [place]. This disclosure is being madepursuant to the Care Everywhere program and may not contain all information available regarding this patient. Last updated 18.[facility] Allergies Active Allergy Reactions Criticality Noted Date Comments Sulfacetamide Nausea and/or Vomiting Low 02/26/2024 Medications * Be aware that medications may not be up to date on this document. Alwaysverify current medications with the patient. Medication Sig Dispensed Refills Start Date End Date Status FLUoxetine (PROzac) 40 MG capsule Take 1 (one) capsule by mouth once daily Active multivitamin daily (THERAGRAN) tablet Take 1 (one) tablet by mouth once daily Active Other Take 1 Each by mouth once daily bariatric1 Active calcium carbonate-vitamin D 600-200 MG-UNIT tablet Take 1 (one) tablet by mouth 2 times daily Active Vitamin D, Cholecalciferol, 25 MCG (1000 UT) CAPS Take by mouth 2 times daily Active busPIRone (BUSPAR) 10 MG tablet Take 1 (one) tablet by mouth as needed Active cranberry (CRANBERRY) 400 MG tablet Take 1 (one) tablet by mouth once daily Active Multiple Vitamins-Minerals (HAIR SKIN NAILS PO) Acti ve TURMERIC PO Active valACYclovir (Valtrex) 500 MG tablet 04/12/2022 Active diphenhydrAMINE (Benadryl) 25 MG capsule Take 1 (one) capsule by mouth as directed Active Active Problems Problem Noted Date Diagnosed Date Allergic rhinitis due to grass pollen 04/09/2024 Urinary incontinence 06/19/2011 02/27/2024 Overview (02/27/2024): Urinary incontinence, unspecified;Practice ID: [id number] Immunizations Name Administration Dates Next Due INFLUENZA VACCINE, QUADR. (F LUZONE; FLULAVAL; FLUARIX; AFLURIA QUADRIVALENT; 6MO+), 0.5 ML (IIV4) 09/26/2019,09/07/2018 TDAP (7yrs+) 05/24/2017 Zoster Hzv Vacc Recombinant Inj Im 04/06/2020, iNFLUENZA VACCINE, RECOM-MACHUCA, QUADR. (FLUBLOCK QUADRIVALENT; 18Y+) (RIV4) 08/12/2020 Social History Tobacco Use Types Packs/Day Years Used Date Smoking Tobacco: Former Cigarettes 0 12/07/1996 - 12/07/2016 Smokeless Tobacco: Never Tobacco Cessation:Counseling Given: Not Answered Alcohol Use Standard Drinks/Week Comments No 0 (1 standard drink = 0.6 oz pur e alcohol) Sex and Gender Information Value Date Recorded Sex Assigned at Not on file Gender Identity Not on file Sexual Orientation Not on file Last Filed Vital Signs Vital Sign Reading Time Taken Comments Blood Pressure 122/74 06/22/2022 12:20 PM CDT Pulse 71 06/22/2022 12:20 PM CDT Temperature 36.3 C (97.4 F) 08/16/2021 10:25 AM CDT Respiratory Rate 16 06/26/2017 3:13 PM CDT Oxygen Saturation 98% 06/22/2022 12:20 PM CDT Inhaled Oxygen Concentration - - Weight 54.4 kg (120 lb) 02/26/2024 10:14 AM CDT Height 157.5 cm (5' 2 ) 02/26/2024 10:14 AM CDT Body Mass Index 21.95 02/26/2024 10:14 AM CDT Functional Status Functional Status Response Date of Assess ment Is person deaf or have serious hearing difficult y? No 06/25/2017 Is person blind or have serious difficulty seein g? No 06/25/2017 Does person have serious dif ficulty walking/climbing stairs? No 06/25/2017 Does person have difficulty dressing/bathing? No 06/25/2017 Does person have difficulty doing errands alone? No 06/25/2017 Cognitive Status Response Date of Assessm ent Does person have difficulty concentrating/remembering/making decisions? No 06/25/2017 Plan of Treatment Not on file Advance Directives * Full Code (Latest Code Status on File) Date Activated Date Inactivated Comments 06/25/2017 1:38 PM 06/26/2017 6:26 PM Care Teams Public Health Advisor Relationship Specialty Start Date End Date Anurag Beasley MD [address] [place] [address] PCP - General Family Medicine 04/09/24
--- OUTSIDE RECORDS SUMMARY | 2025-02-02 13:46 | XMS_ITS | Clinical Summary ---
Author Organization [facility] Address [address] Attn: Epic Prelude ADT JUSTIN SILVA [address] Care Team Providers Care Central Office Worker Name Role Phone Anurag Beasley MD Primary Care Provider [phone] Active Problems Patient Care Coordination No te Formatting of this note migh t be different from the original. PCP: Dr. Lopez Harris - [place], [place]. 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 Gender Identity Not on file Sexual Orientation Not on file Plan of Treatment Health Maintenance Due Date Last Done Comments DTAP/TDAP/TD VACCINES (1 - Tdap) 1978 BREAST CANCER SCREENING 1999 COLORECTAL SCREENING 2004 Colorectal Cancer Screening 2004 FIT-DNA Q 3 years 2004 FIT/FOBT Q 1 year 2004 Flex Sig/CT Colonography Q 5 years 2004 PNEUMOCOCCAL VACCINE 50+ YEA RS (1 of 1 - PCV) 2009 ZOSTER VACCINE (1 of 2) 2009 CERVICAL CANCER SCREENING 02/12/20212017, 02/06/2017, 12/15/2015 INFLUENZA VACCINE (#1) 2024 RSV VACCINE (60+ or ) (1 - 1-dose 75+ series) 2034 OSTEOPOROSIS SCREENING Completed 03/02/2020, 2016 Care Teams Central Office Worker Relationship Specialty Start Date End Date Anurag Beasley MD [address] [place] [address] PCP - General Family Practice 02/16/21
--- OUTSIDE RECORDS SUMMARY | 2025-02-02 13:46 | XMS_ITS | Clinical Summary ---
Author Organization [facility] Address [address] [place] [address] Care Team Providers Care Stream Control Officer Name Role Phone Unavailable Primary Care Provider Unavailabl e Social History Tobacco Use Types Packs/Day Years Used Date Smoking Tobacco: Never Assessed Comments Unknown Sex and Gender Information Value Date Recorded Sex Assigned at Not on file Legal Sex Female 7:25 PM CDT Gender Identity Not on file Sexual Orientation Not on file Plan of Treatment Health Maintenance Due Date Last Done Comments Cervical Cancer Screening Pa p Smear (Age 30 to 64) Every 3 Years 1959 Colorectal Cancer Screening Colonoscopy (10 Years) 1959 Annual Physical 1962 Hepatitis C 1977 DTaP, Tdap and Td Vaccines ( 1 - Tdap) 1978 Cervical Cancer Screening Pa p with HPV Testing (Age 30 to 64) Every 5 Years 1989 Cervical Cancer Screening with HPV 1989 Mammogram Screening 1999 Zoster Vaccines (1 of 2) 2009 COVID-19 Vaccine ( - 2023-2 5 season) 2024 Influenza Adult (#1) 2024 Dexa Scan (General) 2024 Pneumococcal Vaccine: 65+ Ye ars (1 of 1 - PCV) 2024 RSV Immunization or 60+ Years (1 - 1-dose 75+ series) 2034 Meningococcal B Vaccine Aged Out No l onger eligible based on patient's age to complete this topic Meningococcal Vaccine Aged Out No patricia keenan eligible based on patient's age to complete this topic Pneumococcal Vaccine: Pediat rics (0 to 5 Years) and At-Risk Patients (6 to 64 Years) Aged Out No longer eligible b ased on patient's age to complete this topic RSV Immunizations Under 20 Months Aged Out No longer eligible based on patient's age to complete this topic
--- OUTSIDE RECORDS SUMMARY | 2025-02-02 13:46 | XMS_ITS | Clinical Summary ---
Author Organization [facility] Address [address] [place] [address] Care Team Providers Care Memorial Adviser Name Role Phone Anurag Beasley MD Primary Care Provider [phone] Source Comments [facility],non-owned Affiliates and Associated Physician Practices is amultiple site organization consisting of ambulatory clinics and hospital sitesin [place], [place], [place] and [place]. This disclosure is being madepursuant to the Care Everywhere program and may not contain all information available regarding this patient. Last updated 18.[facility] Allergies Active Allergy Reactions Criticality Noted Date [...] RECOM-MACHUCA, QUADR. (FLUBLOCK QUADRIVALENT; 18Y+) (RIV4) 08/12/2020 Family History Medical History Relation Name Comments Arthritis - Rheumatoid Daughter Cancer - Other Father Cancer - Other Mother Diabetes Mother Relation Name Status Comments Daughter Father Mother Social History Tobacco Use Types Packs/Day Years [...] Mass Index 21.95 02/26/2024 10:14 AM CDT Plan of Treatment Health Maintenance Due Date Last Done Comments BONE DENSITY TESTING 1959 COLOGUARD (AGES 45-75) - COL ON CA SCREENING 1959 COLON MONITORING 1959 COLONOSCOPY - COLON CA SCREENING 1959 CT COLONOGRAPHY - COLON CA SCREENING 1959 Colorectal Cancer Screening 1959 FIT - COLON CA SCREENING 1959 FLEX SIG - COLON CA SCREENING 1959 LIPID TESTING 1959 MAMMOGRAM 1959 HIV SCREENING 1974 HEPATITIS C SCREENING 11/18/1977 PNEUMOCOCCAL VACCINE 50+ (1 of 1 - PCV) 2009 COVID-19 VACCINE (4 - 2023-2 5 season) 2024 10/16/2021, 03/08/2021, 02/13/2021 INFLUENZA VACCINE (#1) 2024 , 09/26/2019, 09/07/2018 DEPRESSION SCREENING 11/19/2024 PAP SMEAR 05/30/2026 05/30/2023 DTAP/TDAP/TD VACCINES (2 - T d or Tdap) 05/24/2027 05/24/2017 Respiratory Syncytial Virus (RSV) Vaccine Pt: or over 60 yrs (1 - 1-dose 75+ series) 2034 ZOSTER VACCINE Completed 04/06/2020, 01/19/2020 HEPATITIS B VACCINE Aged Out No longe r eligible based on patient's age to complete this topic HIB VACCINE Aged Out No longer eligi ble based on patient's age to complete this topic HPV VACCINE Aged Out No longer eligi ble based on patient's age to complete this topic MENINGOCOCCAL (Group B) VACCINE SHARED DECISION-MAKING Aged Out No longer eligible based on patient's age to complete this topic MENINGOCOCCAL GROUPS A/C/Y/W VACCINE Aged Out No longer eligible b ased on patient's age to complete this topic Advance Directives * Full Code (Latest Code Status on File) Date Activated Date Inactivated Comments 06/25/2017 1:38 PM 06/26/2017 6:26 PM Care Teams Memorial Adviser Relationship Specialty Start Date End Date Anurag Beasley MD [address] [place] [address] PCP - General Family Medicine 04/09/24
--- OUTSIDE RECORDS SUMMARY | 2025-02-02 13:46 | XMS_ITS | Patient Health Summary ---
Author Organization [facility] Address [address] [place] [address] Care Team Providers Care Fluid Pump Operator Name Role Phone Anurag Beasley MD Primary Care Provider [phone] Note from [facility],non-owned Affiliates and Associated Physician Practices is amultiple site organization consisting of ambulatory clinics and hospital sitesin [place], [place], [place]. This disclosure is being madepursuant to the Care Everywhere program and may not contain all information available regarding this patient. Last updated 18.[facility] Allergies * Sulfacetamide(Nausea and/or Vomiting) -Low Criticality * Penicillins(Urticaria) -Medium Criticality,Inactive Medications * Be aware that medications may not be up to date on this document. Alwaysverify current medications with the patient. * FLUoxetine (PROzac) 40 MG capsule Take 1 (one) capsule by mouth once daily * multivitamin daily (THERAGRAN) tablet Take 1 (one) tablet by mouth once daily * Other Take 1 Each by mouth once daily bariatric1 * calcium carbonate-vitamin D 600-200 MG-UNIT tablet Take 1 (one) tablet by mouth 2 times daily * Vitamin D, Cholecalciferol, 25 MCG (1000 UT) CAPS Take by mouth 2 times daily * busPIRone (BUSPAR) 10 MG tablet Take 1 (one) tablet by mouth as needed * cranberry (CRANBERRY) 400 MG tablet Take 1 (one) tablet by mouth once daily * Multiple Vitamins-Minerals (HAIR SKIN NAILS PO) * TURMERIC PO * valACYclovir (Valtrex) 500 MG tablet(Started 04/12/2022) * diphenhydrAMINE (Benadryl) 25 MG capsule Take 1 (one) capsule by mouth as directed Active Problems Problem Noted Date Diagnosed Date Allergic rhinitis due to grass pollen 04/09/2024 Urinary incontinence 06/19/2011 02/27/2024 Immunizations * INFLUENZA VACCINE, QUADR. (FLUZONE; FLULAVAL; FLUARIX; AFLURIA QUADRIVALENT; 6MO+), 0.5 ML (IIV4)(Given 09/26/2019, 09/07/2018) * TDAP (7yrs+)(Given 05/24/2017) * Zoster Hzv Vacc Recombinant Inj Im(Given 04/06/2020, 01/19/2020) * iNFLUENZA VACCINE, RECOM-MACHUCA, QUADR. (FLUBLOCK QUADRIVALENT; 18Y+) (RIV4)(Given 08/12/2020) Social History Tobacco Use Types Packs/Day Years [...] Mass Index 21.95 02/26/2024 10:14 AM CDT Procedures * VITAMIN D 25-HYDROXY(Performed 07/05/2022) Performed for Bariatric surgery status, Vitamin deficiency, Mineral deficiency, Vitamin D deficiency, Vitamin B deficiency * VITAMIN B12(Performed 07/05/2022) Performed for Bariatric surgery status, Vitamin deficiency, Mineral deficiency, Vitamin D deficiency, Vitamin B deficiency * VITAMIN B1(Performed 07/05/2022) Performed for Bariatric surgery status, Vitamin deficiency, Mineral deficiency, Vitamin D deficiency, Vitamin B deficiency * COMPREHENSIVE METABOLIC PANEL(Performed 07/05/2022) Performed for Bariatric surgery status, Vitamin deficiency, Mineral deficiency, Vitamin D deficiency, Vitamin B deficiency * CBC W/O DIFFERENTIAL(Performed 07/05/2022) Performed for Bariatric surgery status, Vitamin deficiency, Mineral deficiency, Vitamin D deficiency, Vitamin B deficiency * VITAMIN D 25-HYDROXY(Performed 08/16/2021) Performed for Bariatric surgery status, Vitamin deficiency, Mineral deficiency, Vitamin D deficiency * VITAMIN B12(Performed 08/16/2021) Performed for Bariatric surgery status, Vitamin deficiency, Mineral deficiency, Vitamin D deficiency * VITAMIN B1(Performed 08/16/2021) Performed for Bariatric surgery status, Vitamin deficiency, Mineral deficiency, Vitamin D deficiency * COMPREHENSIVE METABOLIC PANEL(Performed 08/16/2021) Performed for Bariatric surgery status, Vitamin deficiency, Mineral deficiency, Vitamin D deficiency * CBC W/O DIFFERENTIAL(Performed 08/16/2021) Performed for Bariatric surgery status, Vitamin deficiency, Mineral deficiency, Vitamin D deficiency * VITAMIN D 25-HYDROXY(Performed 05/14/2020) Performed for Bariatric surgery status, Vitamin deficiency, Mineral deficiency, Vitamin D deficiency * VITAMIN B12(Performed 05/14/2020) Performed for Bariatric surgery status, Vitamin deficiency, Mineral deficiency, Vitamin D deficiency * VITAMIN B1(Performed 05/14/2020) Performed for Bariatric surgery status, Vitamin deficiency, Mineral deficiency, Vitamin D deficiency * COMPREHENSIVE METABOLIC PANEL(Performed 05/14/2020) Performed for Bariatric surgery status, Vitamin deficiency, Mineral deficiency, Vitamin D deficiency * CBC W/O DIFFERENTIAL(Performed 05/14/2020) Performed for Bariatric surgery status, Vitamin deficiency, Mineral deficiency, Vitamin D deficiency * BLOOD TYPE ABO+ RH PANEL(Performed 06/25/2019) Performed for Bariatric surgery status, Vitamin deficiency, Mineral deficiency, Vitamin D deficiency * VITAMIN D 25-HYDROXY(Performed 06/25/2019) Performed for Bariatric surgery status, Vitamin deficiency, Mineral deficiency, Vitamin D deficiency * VITAMIN B12(Performed 06/25/2019) Performed for Bariatric surgery status, Vitamin deficiency, Mineral deficiency, Vitamin D deficiency * VITAMIN B1(Performed 06/25/2019) Performed for Bariatric surgery status, Vitamin deficiency, Mineral deficiency, Vitamin D deficiency * COMPREHENSIVE METABOLIC PANEL(Performed 06/25/2019) Performed for Bariatric surgery status, Vitamin deficiency, Mineral deficiency, Vitamin D deficiency * CBC W/O DIFFERENTIAL(Performed 06/25/2019) Performed for Bariatric surgery status, Vitamin deficiency, Mineral deficiency, Vitamin D deficiency * VITAMIN D 25-HYDROXY(Performed 06/25/2018) Performed for Bariatric surgery status, Vitamin deficiency, Mineral deficiency, Vitamin D deficiency * VITAMIN B12(Performed 06/25/2018) Performed for Bariatric surgery status, Vitamin deficiency, Mineral deficiency, Vitamin D deficiency * VITAMIN B1(Performed 06/25/2018) Performed for Bariatric surgery status, Vitamin deficiency, Mineral deficiency, Vitamin D deficiency * COMPREHENSIVE METABOLIC PANEL(Performed 06/25/2018) Performed for Bariatric surgery status, Vitamin deficiency, Mineral deficiency, Vitamin D deficiency * CBC W/O DIFFERENTIAL(Performed 06/25/2018) Performed for Bariatric surgery status, Vitamin deficiency, Mineral deficiency, Vitamin D deficiency * REF LAB-SPECIMEN STATUS REPORT(Performed 12/25/2017) * VITAMIN D 25-HYDROXY(Performed 12/25/2017) Performed for Bariatric surgery status, Class 1 obesity with body mass index (BMI) of 30.0 to 30.9 in adult, unspecified obesity type, unspecified whether serious comorbidity present, Vitamin deficiency, Mineral deficiency, Vitamin D deficiency * VITAMIN B12(Performed 12/25/2017) Performed for Bariatric surgery status, Class 1 obesity with body mass index (BMI) of 30.0 to 30.9 in adult, unspecified obesity type, unspecified whether serious comorbidity present, Vitamin deficiency, Mineral deficiency, Vitamin D deficiency * VITAMIN B1(Performed 12/25/2017) Performed for Bariatric surgery status, Class 1 obesity with body mass index (BMI) of 30.0 to 30.9 in adult, unspecified obesity type, unspecified whether serious comorbidity present, Vitamin deficiency, Mineral deficiency, Vitamin D deficiency * COMPREHENSIVE METABOLIC PANEL(Performed 12/25/2017) Performed for Bariatric surgery status, Class 1 obesity with body mass index (BMI) of 30.0 to 30.9 in adult, unspecified obesity type, unspecified whether serious comorbidity present, Vitamin deficiency, Mineral deficiency, Vitamin D deficiency * CBC W/O DIFFERENTIAL(Performed 12/25/2017) Performed for Bariatric surgery status, Class 1 obesity with body mass index (BMI) of 30.0 to 30.9 in adult, unspecified obesity type, unspecified whether serious comorbidity present, Vitamin deficiency, Mineral deficiency, Vitamin D deficiency * FL FLUORO UPPER GI TRACT + KUB(Performed 06/26/2017) Performed for S/P gastrectomy * HGB HCT PANEL(Performed 06/26/2017) * GLUCOSE - POINT OF CARE(Performed 06/26/2017) * GLUCOSE - POINT OF CARE(Performed 06/26/2017) * VITAMIN D 25-HYDROXY(Performed 06/26/2017) * CBC W AUTO DIFFERENTIAL(Performed 06/26/2017) * BASIC METABOLIC PANEL (CALCIUM TOTAL)(Performed 06/26/2017) * GLUCOSE - POINT OF CARE(Performed 06/25/2017) * GLUCOSE - POINT OF CARE(Performed 06/25/2017) * PATHOLOGY TISSUE EXAM (STL)(Performed 06/25/2017) Performed for Fatty liver * LAPAROSCOPIC BIOPSY LIVER(Performed 06/25/2017) * LAPAROSCOPIC GASTRECTOMY (LONGITUDINAL/SLEEVE)(Performed 06/25/2017) * VITAMIN B12(Performed 06/05/2017) Performed for Preop examination * VITAMIN B1(Performed 06/05/2017) Performed for Preop examination * COMPREHENSIVE METABOLIC PANEL(Performed 06/05/2017) Performed for Preop examination * CBC W AUTO DIFFERENTIAL(Performed 06/05/2017) Performed for Preop examination * EKG 12-LEAD(Performed 06/05/2017) Performed for Preop examination * CANNABINOIDS URINE CONFIRMATION(Performed 05/04/2017) Performed for Preop examination * URINE DRUG SCREEN IMMUNOASSAY(Performed 05/04/2017) Performed for Preop examination * URINE DRUG SCREEN IMMUNOASSAY(Performed 03/06/2017) Performed for Preop examination * EGD(Performed 11/08/2016) * HELICOBACTER PYLORI UREASE (STL)(Performed 11/08/2016) Performed for Diagnosis unknown * PATHOLOGY TISSUE EXAM (STL)(Performed 11/08/2016) Performed for Diagnosis unknown * ESOPHAGOGASTRODUODENOSCOPY (EGD) DIAGNOSTIC(Performed 11/08/2016) Results * VITAMIN B1 (07/05/2022 9:16 AM CDT) Only the most recent of7 resultswithin the time period is included. Vitamin B1 Whole Blood 134 78 - 185 nmol/L [facility] Comment: Vitamin supplementation within 24 hours prior to blood draw may affect the accuracy of results. This test was developed and its analytical performance characteristics have been determined by [employer]. It has not been cleared or approved by the FDA. This assay has been validated pursuant to the CLIA regulations and is used for clinical purposes. REPORT COMMENT: FASTING:NO AN UPDATE OR CORRECTION HAS BEEN MADE TO NAME Test Performed at: [facility] [address] [address] GORDON NG MD Blood BLOOD SPECIMEN / Unknown 07/05/2022 9:16 AM CDT 07/05/2022 9:18 AM CDT Sabrina Aidee Castrejon FAST FOOD RESTAURANT MANAGER-CADDY/CADDIE SUPERVISOR LAB - [place] ORDERABLES Performing Organization Address [facility] Co de Phone Number [facility] [address] [place] [address] * VITAMIN D 25-HYDROXY (07/05/2022 9:16 AM CDT) Only the most recent of7 resultswithin the time period is included. Pathologist [facility] Vitamin D, 25 Hydroxy 63 30 - 100 ng/mL [facility] Comment: Vitamin D Status 25-OH Vitamin D: Deficiency: <20 ng/mL Insufficiency: 20 - 29 ng/mL Optimal: > or = 30 ng/mL For 25-OH Vitamin D testing on patients on D2-supplementation and patients for whom quantitation of D2 and D3 fractions is required, the QuestAssureD(TM) 25-OH VIT D, (D2,D3), LC/MS/MS is recommended: order code [id number] (patients >2yrs). See Note 1 Note 1 For additional information, please refer to http://education.Genticel.Peerio/faq/UFY838 (This link is being provided for informational/ educational purposes only.) Test Performed at: [facility] [address] [place] [address] BRITTANI BAILEY DO,MPH Blood BLOOD SPECIMEN / Unknown 07/05/2022 9:16 AM CDT 07/05/2022 9:18 AM CDT Sabrina Castrejon FAST FOOD RESTAURANT MANAGER-CADDY/CADDIE SUPERVISOR LAB - [place] ORDERABLES Performing Organization Address [facility] Co de Phone Number [facility] [address] [place] [address] * CBC W/O DIFFERENTIAL (07/05/2022 9:16 AM CDT) Only the most recent of6 resultswithin the time period is included. Pathologist [facility] White Blood Cell Count 4.3 3.8 - 10.8 Thousand/u L [facility] RBC 4.40 3.80 - 5.10 Million/uL [facility] Hemoglobin 13.6 11.7 - 15.5 g/dL [facility] Hematocrit 41.4 35.0 - 45.0 % [facility] MCV 94.1 80.0 - 100.0 fL [facility] MCH 30.9 27.0 - 33.0 pg [facility] MCHC 32.9 32.0 - 36.0 g/dL [facility] RDW 11.8 11.0 - 15.0 % [facility] Platelet Count 189 140 - 400 Thousand/u L [facility] MPV 10.8 7.5 - 12.5 fL [facility] Comment: Test Performed at: [facility] [address] [place] [address] BRITTANI BAILEY DO,MPH Blood BLOOD SPECIMEN / Unknown 07/05/2022 9:16 AM CDT 07/05/2022 9:18 AM CDT Sabrinadarshan Hoskins Cash FAST FOOD RESTAURANT MANAGER-CADDY/CADDIE SUPERVISOR LAB - HEM ATOLOGY ORDERABLES [facility] [address] [place] [address] * COMPREHENSIVE METABOLIC PANEL (07/05/2022 9:16 AM CDT) Only the most recent of7 resultswithin the time period is included. [facility] Glucose 76 65 - 139 mg/dL [facility] Comment: Non-fasting reference interval BUN 10 7 - 25 mg/dL [facility] Creatinine 0.76 0.50 - 1.05 mg/dL [facility] eGFR by Cystatin C 89 > OR = 60 mL/min/1. 73m2 [facility] Comment: The eGFR is based on the CKD-EPI 2020 equation. To calculate the new eGFR from a previous Creatinine or Cystatin C result, go to https://www.kidney.org/professionals/ kdoqi/gfr%5Fcalculator BUN/Creatinine Ratio NOT APPLICABLE 6 (calc) [facility] Sodium 141 135 - 146 mmol/L [facility] Potassium 4.1 3.5 - 5.3 mmol/L [facility] Chloride 103 98 - 110 mmol/L [facility] CO2 29 20 - 32 mmol/L [facility] Calcium 9.3 8.6 - 10.4 mg/dL [facility] Protein Total 6.4 6.1 - 8.1 g/dL [facility] Albumin 4.4 3.6 - 5.1 g/dL [facility] Globulin Total 2.0 1.9 - 3.7 g/dL (calc) [facility] Albumin/Globuli n Ratio 2.2 1.0 - 2.5 (calc) [facility] Bilirubin Total 0.5 0.2 - 1.2 mg/dL [facility] Alkaline Phosphatase 65 37 - 153 U/L [facility] AST 23 10 - 35 U/L [facility] ALT 18 6 - 29 U/L [facility] Comment: Test Performed at: [place] [address] BRITTANI BAILEY DO,MPH Blood BLOOD SPECIMEN / Unknown 07/05/2022 9:16 AM CDT 07/05/2022 9:18 AM CDT Sabrina Castrejon APRNCADDY/CADDIE SUPERVISOR LAB - [place] ORDERABLES Performing Organization Address [facility] de Phone Number [facility] [address] [place] [address] * VITAMIN B12 (07/05/2022 9:16 AM CDT) Only the most recent of7 resultswithin the time period is included. Vitamin B12 1073 200 - 1100 pg/mL [facility] Comment: Test Performed at: [facility] [address] [place] [address] BRITTANI BAILYE DO,MPH Blood BLOOD SPECIMEN / Unknown 07/05/2022 9:16 AM CDT 07/05/2022 9:18 AM CDT Sabrina [facility]rejon [facility] LAB - [place] ORDERABLES Performing Organization Address [facility] de Phone Number [facility] [address] [place] [address] * BLOOD TYPE ABO+ RH PANEL (06/25/2019 11:44 AM CDT) ABO B [facility] ACCOUNT BILL Rh Type Positive [facility] ACCOUNT BILL Comment: Please note: Prior records for this patient's ABO / Rh type are not available for additional verification. Blood BLOOD SPECIMEN / Unknown 06/25/2019 11:44 AM CDT 06/25/2019 Narrative Resulting Agency Comment Lab Testing performed at: [facility] [address] [facility] [id number] Sabrina Castrejon FAST FOOD RESTAURANT MANAGER-CADDY/CADDIE SUPERVISOR LAB - BLO OD BANK ORDERABLES Performing Organization Address City/[facility] Co de Phone Number [facility] ACCOUNT BILL [address] [place] [address] * REF LAB-SPECIMEN STATUS REPORT (12/25/2017 12:07 PM PRIVATE BRANCH EXCHANGE INSTALLER) Specimen Status Report NOT NEEDED [facility] ACCOUNT BILL Comment: No frozen whole blood received. TEST: [id number] Vitamin B1 (Thiamine), Blood Ancillary determined the test is not needed 12/25/2017 12:0 7 PM PRIVATE BRANCH EXCHANGE INSTALLER 12/25/2017 Narrative Resulting Agency Comment [facility] [address] [facility] [phone] Sabrina Castrejon FAST FOOD RESTAURANT MANAGER-CADDY/CADDIE SUPERVISOR LAB - [place] ORDERABLES Performing Organization Address [facility] Co de Phone Number [facility] ACCOUNT BILL [address] [place] [address] * FL FLUORO UPPER GI TRACT + KUB (06/26/2017 12:05 PM CDT) Anatomical Region Laterality Modality Abdomen Radiographic Emma ging 06/26/2017 3:13 PM CDT Narrative 06/26/2017 3:14 PM CDT Examination: Water-soluble upper GI. Indication for examination: Postop gastric sleeve surgery. Following oral administration of water-soluble contrast, there is passage of contrast from the esophagus, through the gastric sleeve and into the duodenum. No obstruction is identified. No leak is identified. Fluoroscopy time 17 seconds. 124 radiographic images were obtained.. Conclusion: Status post gastric sleeve surgery. No leak identified. Procedure Note Elvis Arias MD - 06/26/2017 Examination: Water-soluble upper GI. Indication for examination: Postop gastric sleeve surgery. Following oral administration of water-soluble contrast, there is passage of contrast from the esophagus, through the gastric sleeve and into the duodenum. No obstruction is identified. No leak is identified. Fluoroscopy time 17 seconds. 124 radiographic images were obtained.. Conclusion: Status post gastric sleeve surgery. No leak identified. Miky Elizabeth MD FLUOROSCOPY ORDERABL ES * (ABNORMAL) HGB HCT PANEL (06/26/2017 11:25 AM CDT) Pathologist [facility] Hemoglobin 11.9(L) 12.0 - 15.6 gm/dL 06/26/2017 11:36 AM CDT [facility] Hematocrit 37.7 35.9 - 45.5 % 06/26/2017 11:36 AM CDT [facility] Blood BLOOD SPECIMEN / Unknown Venipuncture / Unknown 06/26/2017 11:25 AM CDT 06/26/2017 11:31 AM CDT Sabrina Castrejon FAST FOOD RESTAURANT MANAGER-CADDY/CADDIE SUPERVISOR LAB - HEM ATOLOGY ORDERABLES Performing Organization Address [facility] de Phone Number [facility] [address] [place] [address] * (ABNORMAL) GLUCOSE - POINT OF CARE (06/26/2017 10:59 AM CDT) Only the most recent of4 resultswithin the time period is included. Pathologist [facility] Glucose WB/POC 131(H) 70 - 106 mg/dL 06/27/2017 7:07 AM CDT [facility] Blood BLOOD SPECIMEN / Unknown 06/26/2017 10:59 AM CDT 06/27/2017 7:07 AM CDT Miky Elizabeth MD LAB - POINT OF CARE ORDERABLES Performing Organization Address [facility] Co de Phone Number [facility] [address] [place] [address] * (ABNORMAL) CBC W AUTO DIFFERENTIAL (06/26/2017 3:17 AM CDT) Only the most recent of2 resultswithin the time period is included. [facility] WBC 9.3 4.4 - 10.7 x10E9/L 06/26/2017 3:47 AM CDT [facility] WBC Corrected x10E9/L 06/26/2017 3:47 AM CDT [facility] RBC 4.00 3.80 - 5.20 x10E12/L 06/26/2017 3:47 AM CDT [facility] Hemoglobin 11.8(L) 12.0 - 15.6 gm/dL 06/26/2017 3:47 AM CDT [facility] Hematocrit 36.8 35.9 - 45.5 % 06/26/2017 3:47 AM CDT [facility] MCV 92.0 80.7 - 98.3 fl 06/26/2017 3:47 AM CDT [facility] MCH 29.5 26.7 - 34.0 pg 06/26/2017 3:47 AM CDT [facility] MCHC 32.1 30.8 - 35.9 gm/dL 06/26/2017 3:47 AM CDT [facility] Platelet Count 172 153 - 416 x10E9/L 06/26/2017 3:47 AM CDT [facility] RDW-CV 12.4 12.1 - 14.9 % 06/26/2017 3:47 AM CDT [facility] MPV 10.4 9.4 - 12.9 fl 06/26/2017 3:47 AM CDT [facility] Neutrophils % 83.9(H) 44.0 - 73.0 % 06/26/2017 3:47 AM CDT [facility] Lymphocytes % 10.4(L) 20.0 - 43.0 % 06/26/2017 3:47 AM CDT [facility] Monocytes % 5.2 5.0 - 13.0 % 06/26/2017 3:47 AM CDT [facility] Eosinophils % 0.0 0.0 - 6.0 % 06/26/2017 3:47 AM CDT [facility] Basophils % 0.1 0.0 - 2.0 % 06/26/2017 3:47 AM CDT [facility] Immature Granulocytes 0.4 0 - 1 % 06/26/2017 3:47 AM CDT [facility] Neutrophil Absolute 7.82(H) 2.01 - 7.14 x10E9/L 06/26/2017 3:47 AM CDT [facility] Lymphocytes Absolute 0.97(L) 1.07 - 3.94 x10E9/L 06/26/2017 3:47 AM CDT [facility] Monocytes Absolute 0.48 0.26 - 1.07 x10E9/L 06/26/2017 3:47 AM CDT [facility] Eosinophils Absolute 0.00 0 - 0.47 x10E9/L 06/26/2017 3:47 AM CDT [facility] Basophils Absolute 0.01 0 - 0.08 x10E9/L 06/26/2017 3:47 AM CDT [facility] Immature Granulocytes Absolute 0.04 0.00 - 0.06 x10E9/L 06/26/2017 3:47 AM CDT [facility] nRBC Auto 0 /100 WBC 06/26/2017 3:47 AM CDT [facility] Blood BLOOD SPECIMEN / Unknown Venipuncture / Unknown 06/26/2017 3:17 AM CDT 06/26/2017 3:39 AM CDT Miky Elizabeth MD LAB - HEMATOLOGY ORD ERABLES [facility] [address] [place] [address] * (ABNORMAL) BASIC METABOLIC PANEL (CALCIUM TOTAL) (06/26/2017 3:17 AM CDT) Glucose 136(H) 74 - 106 mg/dL 06/26/2017 4:01 AM T [facility] Sodium 139 136 - 145 mmol/L 06/26/2017 4:01 AM CDT [facility] Potassium 4.0 3.5 - 5.1 mmol/L 06/26/2017 4:01 AM CDT [facility] Chloride 104 98 - 107 mmol/L 06/26/2017 4:01 AM CDT [facility] CO2 28 22 - 31 mmol/L 06/26/2017 4:01 AM CDT [facility] Calcium 8.3(L) 8.5 - 10.1 mg/dL 06/26/2017 4:01 AM T [facility] Anion Gap 7(L) 8 - 16 mmol/L 06/26/2017 4:01 AM CDT [facility] BUN 10 7 - 21 mg/dL 06/26/2017 4:01 AM CDT [facility] Creatinine 0.79 0.50 - 1.30 mg/dL 06/26/2017 4:01 AM CDT [facility] eGFR by MDRD >60 >60 mL/min/1.7 3m2 06/26/2017 4:01 AM CDT [facility] eGFR by MDRD >60 >60 mL/min/1.7 3m2 06/26/2017 4:01 AM CDT [facility] Blood BLOOD SPECIMEN / Unknown Venipuncture / Unknown 06/26/2017 3:17 AM CDT 06/26/2017 3:39 AM CDT Miky Elizabeth MD LAB - CHEMISTRY ESTEBAN FARLEY [facility] Organization Address City/State/ZIP Co de Phone Number [facility] [address] [place] [address] * GROSS + MICRO EXAM (STL) (06/25/2017 10:08 AM CDT) Only the most recent of2 resultswithin the time period is included. Case Report Surgical Pathology Report Case: [id number] Authorizing Provider: Miky Elizabeth MD Collected: 06/25/2017 10:08 AM Ordering Location: [facility] Received: 06/25/2017 01:52 PM Pathologist: Shane Terrazas MD Specimen: Liver Needle Biopsy 06/27/2017 9:21 AM CDT [facility] Final Diagnosis 1. Liver, core needle biopsy: -- Suboptimal specimen with cirrhosis -- Macrovesicular steatosis, mild -- No significant increase in stainable iron AB/na 06/27/2017 9:21 AM T [facility] Gross Description Received in formalin labeled with the patient's name and liver biopsy is a single cylindrical core of castillo tissue measuring 0.6 x 0.1 cm. Stained and submitted in A1. AB/scs 06/27/2017 9:21 AM CDT [facility] Microscopic Description The liver needle biopsy shows a small amount of nodular liver tissue that is suspicious for cirrhosis. What appear to be portions of portal triads seem to be present, so this would not likely be a regenerative nodular hyperplasia. The amount of tissue is very scant and difficult to evaluate. There is some mild microvesicular steatosis. Some slight inflammation is seen including scattered eosinophils. The trichrome stain confirms the septal fibrosis and cirrhosis. The iron stain shows no significant increase in stainable iron. Correlation with clinical history and findings is recommended. AB/na 06/27/2017 9:21 AM T [facility] Disclaimer All histochemical and/or immunohistochemical results are interpreted with controls that demonstrate appropriate staining reactions before reporting results. Note on use of immunocytochemistry reagents: This test was developed and its performance characteristic determined by [facility], Department of Laboratory Medicine. It has not been cleared or approved by the U.S. Food and Drug Administration (FDA). The FDA has determined that such clearance or approval is not necessary. The test is used for clinical purpose. It should not be regarded as investigational or for research. This laboratory is certified to perform high complexity testing. 06/27/2017 9:21 AM CDT [facility] Embedded Images 06/27/2017 9:21 AM CDT [facility] Pathology/Cytolo gy NEEDLE BIOPSY OF LIVER / Unknown 06/25/2017 10:08 AM CDT 06/25/2017 1:52 PM CDT Miky Elizabeth MD LAB - PATHOLOGY/CYTO LOGY ORDERABLES [facility] [address] [place] [address] * EKG 12-LEAD (06/05/2017 2:33 PM CDT) Ventricular Rate 55 BPM [facility] Atrial Rate 55 BPM [facility] P-R Interval 154 ms [facility] QRS Duration ms 72 ms [facility] Q-T Interval ms 456 ms [facility] QTC Calculation (Bezet) 436 ms [facility] Calculated P [place] 21 degrees [facility] Calculated R [place] 17 degrees [facility] Calculated T [place] 20 degrees [facility] Interpretation EKG Sinus bradycardia Nonspecific ST abnormality Abnormal ECG No previous ECGs available Confirmed by PEPPER MORGAN MD ([id number]) on 06/06/2017 9:00:02 AM DP MUSE 06/05/2017 2:33 PM CDT 06/06/2017 9:00 AM CDT Miky Elizabeth MD ECG ORDERABLES Performing Organization Address City/[facility] Co de Phone Number [facility] * CANNABINOIDS URINE CONFIRMATION (05/04/2017 12:53 PM CDT) Pathologist [facility] Cannabinoid Negative Cutoff=10 05/14/2017 4:16 PM CDT [facility] ([facility]) Urine URINE / Unknown Collection / Unknown 05/04/2017 12:53 PM CDT 05/04/2017 1:33 PM CDT Narrative [facility] ([facility]) - 05/14/2017 4:16 PM CDT Performed at: - [address] [id number] [employer] Consultant: Anshul Adkins MD, Phone: [phone] Miky Elizabeth MD LAB - URINE CHEMISTR Y ORDERABLES Performing Organization Address City/[facility]/ZIP Co de Phone Number [facility] ([facility]) [address] [place] [address] * DRUG SCREEN TOX URINE PANEL (05/04/2017 12:53 PM CDT) Only the most recent of2 resultswithin the time period is included. [facility] Amphetamines Screen Urine Not Detected Not Detected 05/04/2017 2:07 PM CDT [facility] Barbiturates Screen Urine Not Detected Not Detected 05/04/2017 2:07 PM CDT [facility] Benzodiazepines Screen Urine Not Detected Not Detected 05/04/2017 2:07 PM CDT [facility] Cannabinoids Screen Urine Not Detected Not Detected 05/04/2017 2:07 PM CDT [facility] Cocaine Screen Urine Not Detected Not Detected 05/04/2017 2:07 PM CDT [facility] Methadone Screen Urine Not Detected Not Detected 05/04/2017 2:07 PM CDT [facility] Opiate Screen Urine Not Detected Not Detected 05/04/2017 2:07 PM CDT [facility] Phencyclidine Screen Urine Not Detected Not Detected 05/04/2017 2:07 PM CDT [facility] Urine URINE / Unknown Collection / Unknown 05/04/2017 12:53 PM CDT 05/04/2017 1:33 PM CDT Narrative [facility] - 05/04/2017 2:07 PM CDT This drug screen is designed for MEDICAL purposes only. It is not to be used for legal purposes, including but not limited to worker's comp, police investigations, occupational issues, child custody, etc. Any positive result is only presumptive and must be confirmed with a separate confirmatory test ordered by the physician. Drug Screening Test Cutoff Values: AMPHETAMINES 1000 ng/mL BARBITURATES 200 ng/mL BENZODIAZEPINES 200 ng/mL CANNABINOIDS(THC) 50 ng/mL COCAINE 300 ng/mL METHADONE 300 ng/mL OPIATES 300 ng/mL PHENCYCLIDINE(PCP)25 ng/mL Miky Elizabeth MD LAB - URINE CHEMISTR Y ORDERABLES [facility] [address] [place] [address] * EGD (11/08/2016 11:23 AM [employer]IVATE [employer] EXCHANGE INSTALLER) Narrative [facility] - 11/08/2016 11:23 AM [employer] EXCHANGE INSTALLER Miky Elizabeth MD 11/08/2016 11:23 AM [facility] Operative Report OPERATIVE REPORT PATIENT:Musa Kumar MR#: ADMIT DATE: 11/08/2016 8:19 AM ACCT#: DATE OF SURGERY: 11/08/2016 : 1960 PHYSICIAN: Miky Elizabeth MD 55 yrs Body mass index is 37.13 kg/(m^2). PREOPERATIVE DIAGNOSES: heartburn POSTOPERATIVE DIAGNOSES: SAME Gastritis, antral Surgeon: Miky Elizabeth MD FIELD SALES MANAGER: none PROCEDURES PERFORMED: Esophagogastroduodenoscopy w/ biopsy ANESTHESIA: MAC by anesthesia department PROCEDURE: The patient was brought to the GI suite and placed in standard position. MAC anesthesia was administered. The gastroscope was inserted into the oral pharynx and passed through the upper esophagus then advanced to the GE junction and into the stomach pouch. The Z line was identified at 39 cm. There was no hiatal hernia present. The scope was further advanced through the pylorus into the second portion of the duodenum. The scope was then brought back into the stomach where it was retroflexed. All mucosal surfaces were inspected identifying no lesions. Mild evidence of gastritis was present. Biopsies were taken for JANINE testing and H and E. The scope was then brought back to the level of the GE junction.The GE junction also was examined. There was no evidence of inflammatory changes. The gastroscope was withdrawn examining the esophagus on removal of scope. No esophageal abnormalities were identified. The patient tolerated the procedure well and was taken to recovery room in stable condition. COMPLICATIONS: None. Plan: proceed with WLS program Miky Elizabeth MD Miky Elizabeth MD GI PROCEDURE ORDERAB LES Performing Organization Address [facility] [place] [address] * HELICOBACTER PYLORI UREASE (STL) (11/08/2016 11:20 AM [employer] EXCHANGE INSTALLER) Helicobacter pylori Urease Initial Negative Negative 11/09/2016 2:48 PM PRIVATE BR[employer]CH EXCHANGE INSTALLER [facility] Helicobacter pylori Urease Final Negative Negative 11/09/2016 2:48 PM PRIVATE [employer]CH EXCHANGE INSTALLER [facility] Comment:This is an appended report. These results have been appended to a previously preliminary verified report. Microbiology GASTRIC ANTRAL BIOPSY SPECIMEN / Unknown 11/08/2016 11:20 AM [employer] EXCHANGE INSTALLER 11/08/2016 12:02 PM [employer] EXCHANGE INSTALLER Miky Elizabeth MD LAB - MICROBIOLOGY O RDERABLES Performing Organization Address 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
--- OUTSIDE RECORDS SUMMARY | 2025-02-02 13:46 | XMS_ITS | Clinical Summary ---
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 Gender Identity Not on file Sexual Orientation Not on file Plan of Treatment Health Maintenance Due Date Last Done Comments DEXA Bone Density 1960 Hepatitis C Virus (HCV) Screening 1960 TdaP Immunization 1960 Pap Smear 1980 Cervical Cancer Screening (CCS) 1989 HPV/Cotest 1989 Colonoscopy 2004 Colorectal Cancer Screening 2004 Cologuard 2009 Immunochemical Fecal Occult Blood 2009 Mammogram 2009 Pneumococcal Immunization (5 0+ years) (1 of 1 - PCV) 2009 Zoster Immunization (1 of 2) 2009 Influenza Immunization (#1) 2024 SARS-COV-2 Immunization ( - 2023-25 season) 2024 Respiratory Syncytial Virus (RSV) Immunization (Adult) (1 - 1-dose 75+ series) 2034 Hepatitis B Immunization Aged Out No longer eligible based on patient's age to complete this topic Meningococcal Immunization (ACWY) Aged Out No longer eligible based on patient's age to complete this topic Pneumococcal Immunization Combined Aged Out No longer eligible based on patient's age to complete this topic Rotavirus Immunization Aged Out No lo nger eligible based on patient's age to complete this topic
== END 2025-02-02 11:04 | disposition home or self-care (01) ==
PROVIDERS: PCP Family Medicine
DX: M50.30 Other cervical disc degeneration, unspecified cervical region (principal)
CPT/HCPCS: 72050

== ENCOUNTER 2025-06-05 12:13 | Outpatient (CLI) | payer BC, SELFPAY | END 2025-06-05 12:14 | disposition home or self-care (01) | PROVIDERS: PCP Family Medicine | DX: M25.562 Pain in left knee (principal) | CPT/HCPCS: 73564 ==

== ENCOUNTER 2025-11-11 08:45 | Outpatient (CLI) | payer BC, SELFPAY ==
--- NOTE | ~2025-11-11 | MM_ITS ---
EXAMINATION: MM scrn jyothi implant BI w arik HISTORY: Screening mammogram TECHNIQUE: Craniocaudal and mediolateral oblique 3-D tomosynthesis images with implant displacement and synthetic 2-D images were generated. Craniocaudal and mediolateral oblique views of the breasts without implant displacement were obtained using full field digital mammography. CAD analysis was submitted and interpreted. COMPARISON: Comparison to multiple prior studies sequentially, with oldest reviewed study dated 02/28/2019. BREAST PARENCHYMAL COMPOSITION: Not dense: There are scattered areas of fibroglandular density. FINDINGS: There is no evidence of suspicious mass, calcification, or architectural distortion to suggest malignancy in either breast. There has been no suspicious interval change. IMPRESSION: 1. No mammographic evidence of malignancy. 2. Recommend routine screening mammography in one year. BI-RADS Category 1: Negative Reviewed, dictated and finalized at location O. PERFORMANCE LABORER
--- OUTSIDE RECORDS SUMMARY | 2025-11-11 08:52 | XMS_ITS | Data Portability ---
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 Patient [...] are new symptoms. Not available 06/19/2024 11:42:00 08/11/2025 08/11/2025 Annual gynecological exam performed. Patient will come back in a year unless there are new symptoms. [email or web address] Not available 08/11/2025 11:19:25 Plan of Treatment Reminders Order Date Submit Date Provider Last Modified By Organization Details Last Modified Time Details Appointments None recorded . Lab None recorded . Referral None recorded . Procedures None recorded . Surgeries None recorded . Imaging MAMMO, screenin g, digital, bilatera l 2024 025 [facility], [address], [place], [address], 04:05:17 MAMMO, screenin g, digital, bilatera l [address], [address], [place], [address], 4 15:52:56 DEXA, axial skeleton + vertebra l fracture assessme nt [address], [address], [place], [address], 4 15:52:56 Medication Orders valacycl ovir 1 gram tablet 2024 025 [facility] 435, [address] [place] [address], [address], 5 12:02:08 fluoxeti ne 40 mg capsule 2024 025 [facility], [address] [place] [address], [address], 5 12:00:20 valacycl ovir 1 gram tablet 2023 024 [facility], [address] [place] [address], [address], 4 12:14:19 fluoxeti ne 40 mg capsule 2023 024 [facility] [address], [address] [place] [address], [address], 4 12:16:52 valacycl ovir 500 mg tablet [email or web address] [place] [address] [address], [address] [place] [address], [address], 5 11:34:44 Premarin 0.625 mg/gram vaginal cream 2021 022 osito [facility] 435, [address] [place] [address], [address], 3 11:19:26 valacycl ovir 500 mg tablet 2021 cira [facility] 928, [address], [address], 5 11:34:44 fluoxeti ne 40 mg capsule 2021 022 [facility] 886, [address], [address], 2 10:16:08 Patient TargetsNo targets recorded. Patient InstructionsNo instructions recorded. Reason for Referral None Reported. Results Created Date Observation Date Name Description Value Unit Range Abnormal Flag Note LastModifiedBy Organization Detail LastModifiedTime 05/30/2005/30/2023 IMAGE GUIDE D PAP AND HPV REGAR [...] Rescr een: Janey Castellano, CT Speci men: Scree corrie Pap - Image d, Cervi x STATE MENT OF ADEQU ACY: Satis facto ry for evalu ation Trans forma tion zone compo nent canno t be defin itive ly ident ified due to the prese nce of atrop hy or other hormo nal floyd es FINAL DIAGN OSIS: Negat manan for Intra epith elial Basia n or Sunday delong (NIL) . Atrop hic cell bentley rhodes. Elect eulogio back d by Janey Castellano, CT on 2022 [...] as clini robyn mariee nted. Not Available [facility] (Lab) [address], [place], [address], 06/01/2023 10:10:43 06/19/20 24 06/19/2024 IMAGE GUIDE D PAP AND HPV REGAR DLESS image guided Pap, HPV regardless of Pap result SEE RESULT S BELOW CASE REPOR T: Cytol ogy Gynec ologi phylicia Repor t Case: [id number] [employer] willis cotton Provi miriam: Madhuri Cordero MD Colle cted: 06/19 1425 Order ing Locat ion: [place] [facility] Recei chito: 06/20 0050 First Scree n: Janey Castellano, CT Speci men: Scree corrie Pap - [...] OSIS: Negat manan for Intra epith elial Basia simmons or Sunday delong (NIL) . Atrop hic cell bentley rn. Jacob cho wong d by Janey Castellano, CT on 024 at [...] as clini robyn mariee nted. Not Available [facility] (Lab) [address], [place], [address], 06/26/2024 10:06:28 11/07/20 22 11/07/2022 MAMMO , scree corrie, bilat eral No observ ation record ed. [address], [address], 2022 11:11:47 11/10/20 24 11/10/2024 MAMMO , scree corrie, bilat eral No observ ation record ed. [address], [address], 11/10/2024 16:38:28 11/13/2011/10/2024 DEXA, axial skele ton + verte bral fract ure asses sment No observ ation record ed. [email or web address] [place] [address] [address], [place], [address], 11/21/2024 11:11:10 Result Notes None recorded. Problems Name Problem SNOMED Code Status Onset Date Resolution Date Notes Provider Name and Address Organization Details Recorded Time Screenin g for malignan t neoplasm of colon Completed 201004/11/2022 Special screening for malignant neoplasms , colon;Pra ctice ID: 0001 [facility] 16:19:41 Urinary incontin ence [id number] Completed 201004/11/2022 Urinary incontine nce, unspecifi ed;Practi ce ID: 0001 Delilah Chow [facility] 2 16:19:41 Screenin g for malignan t neoplasm of cervix Completed 201104/11/2022 Pap Smear;Pra ctice ID: 0001 Delilah Chow [facility] 2 16:19:41 Screenin g for malignan t neoplasm of rectum Completed 201104/11/2022 Screening for malignant neoplasms of the rectum;Pr actice ID: 0001 Delilah Chow [facility] 2 16:19:42 Leukocyt osis [id number] Completed 201304/11/2022 LEUKOCYTO SIS NOS;Pract ice ID: 0001 Delilah Chow [facility] 2 16:19:41 Speciali zed medical examinat ion Completed 201304/11/2022 Routine gynecolog ical examinati on;Practi ce ID: 0001 Delilah Chow [facility] 2 16:19:42 Urinary tract infectio us disease [id number] Completed 201404/11/2022 Urinary tract infection , site not specified ;Practice ID: 0001 Delilah Chow [facility] 2 16:19:42 Microsco pic hematuri a [id number] Completed 201404/11/2022 HEMATURIA MICROSCOP IC;Practi ce ID: 0001 Delilah Chow [facility] 2 16:19:41 Adult health examinat ion Completed 201404/11/2022 Routine general medical examinati on at a health care facility; Practice ID: 0001 Delilah Chow [facility] 2 16:19:41 Increase d frequenc y of urinatio n [id number] Completed 201404/11/2022 Urinary frequency ;Recorded Elsewhere : No Locati on: [facility] So urce: EHR Chron ic: N Practic e ID: 0001 Bill able Time: 02:45:00 PM Delilah Chow [facility] 2 16:19:41 Atypical squamous cells of undeterm ined signific ance on cervical Papanico laou smear [id number] Completed 201404/11/2022 Papanicol aou smear of cervix with atypical squamous cells of undetermi beata significa nce (ASC-US); Recorded Elsewhere : No Locati on: [facility] So urce: EHR Chron ic: N Practic e ID: 0001 Bill able Time: 10:00:00 AM Delilah Chow [facility] 2 16:19:42 Atypical glandula r cells on cervical Papanico laou smear [id number] Completed 201404/11/2022 Abnormal glandular Papanicol aou smear of cervix;Re corded Elsewhere : No Locati on: [facility] So urce: EHR Chron ic: N Practic e ID: 0001 Bill able Time: 10:00:00 AM Delilah Chow null, [facility] 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 2 16:19:[address] Concept Completed 201804/11/2022 Encntr for general adult medical exam w/o abnormal findings; Recorded Elsewhere : No Locati on: [facility] So urce: EHR Chron ic: N Practic e ID: 0001 Bill able Time: 09:30:00 AM Delilah park [facility] 2 16:19:42 Problem Notes None recorded. Procedures Surgical History Date Name Laterality Status Provider Name and Address Organization Details Recorded Time 06/19/20 24 Date of Last Pap Smear completed Harriet Tahmina [facility] 08/11/2025 11:35:32 02/18/20 20 completed Lisette Galeano DENISE- [address], [place], [address], [facility] 03/09/2021 10:12:50 laparoscopic sleeve gastrectomy completed Stefani Alves [facility] 02/25/2020 10:29:31 augmentation mammoplasty completed Stefani Alves [facility] 02/25/2020 10:29:46 Bariatric Surgery completed Kristen Charles [facility] 03/09/2021 09:31:25 Imaging Results None recorded. Procedure Notes None recorded. Medical Equipment None Reported. Allergies No known drug allergies Medications Name Sig Start Date Stop Date Status Note LastModified by Organization Details LastModified Time fluoxetin e 40 mg capsule TAKE 1 CAPSULE BY MOUTH ONCE DAILY IN THE MORNING 2024 active Not Available Not Available Not Avai lable prednison e 10 mg tablet TAKE 1 TABLET BY MOUTH THREE TIMES DAILY FOR 5 DAYS 08/11 completed Not Available Not Available Not Available azithromy angelita 250 mg tablet TAKE 2 TABLETS BY MOUTH ON DAY 1, AND THEN TAKE 1 TABLET BY MOUTH ONCE A DAY ON DAY 2 THROUGH DAY 5 05/30 completed Not Available Not Available Not Available Vitamin B-1 50 mg tablet 02/12 completed Prescrib ed Elsewher e: Yes [facility] By: reta Vazquez r DateTime : 12/10/19 14 10:30:00 AM Not Available Not Available Not Available ofloxacin 0.3 % eye drops INSTILL 1 DROP INTO SURGICAL EYE THREE TIMES DAILY STARTING 2 DAYS BEFORE SURGERY, CONTINUI NG FOR 1 WEEK AFTER SURGERY 08/11 completed Not Available Not Available Not Available metoprolo l succinate ER 50 mg tablet,ex tended release 24 hr take 1 tablet by oral route every day 02/12 completed Prescrib ed Elsewher e: Yes [facility] By: reta Vazquez r DateTime : 12/14/19 15 10:30:00 AM Not Available Not Available Not Available valacyclo vir 1 gram tablet TAKE 1 TABLET BY MOUTH EVERY 12 HOURS 2024 active Not Available Not Available Not Avai lable phentermi ne 15 mg capsule TAKE 1 CAPSULE BY MOUTH ONCE DAILY BEFORE BREAKFAS T 04/12 completed Not Available Not Available Not Available folic acid 20 mg capsule 12/14 completed Prescrib ed Elsewher e: Yes [facility]oca [facility] By: lara prince DateTime : 12/10/19 14 10:30:00 AM Not Available Not Available Not Available Detrol LA 4 mg capsule,e xtended release take 1 capsule (4MG) by oral route every day 02/12 completed Prescrib ed Elsewher e: No Locat ion: [facility] odify By: reta Vazquez r DateTime : 12/15/19 16 10:00:00 AM Not Available Not Available Not Available valacyclo vir 500 mg tablet TAKE 1 TABLET BY MOUTH ONCE DAILY WITH A MEAL 08/11 completed Not Available Not Available Not Available phentermi ne 30 mg capsule TAKE 1 CAPSULE BY MOUTH ONCE DAILY BEFORE BREAKFAS T 04/12 completed Not Available Not Available Not Available ketorolac 0.5 % eye drops INSTILL 1 DROP INTO SURGICAL EYE THREE TIMES DAILY STARTING 2 DAYS BEFORE SURGERY, CONTINUI NG FOR 2 WEEKS AFTER 08/11 completed Not Available Not Available Not Available prednisol one acetate 1 % eye drops,ary pension INSTILL 1 DROP INTO SURGICAL EYE THREE TIMES DAILY STARTING AFTER SURGERY, CONTINUI NG FOR 3 WEEKS 08/11 completed Not Available Not Available Not Available omeprazol e 10 mg capsule,d elayed release take 2 capsule by oral route every day before a meal 12/10 completed Prescrib ed Elsewher e: Yes Loca tion: [facility] odify By: lara prince DateTime : 07/04/20 12 10:00:00 AM Not Available Not Available Not Available Cipro 500 mg tablet take 1 tablet by oral route every 12 hours 02/12 completed Prescrib ed Elsewher e: No Locat ion: [facility] odify By: reta Vazquez r DateTime : 07/05/20 15 04:22:29 PM Not Available Not Available Not Available buspirone 10 mg tablet TAKE 1 TABLET BY MOUTH TWICE DAILY active Not Available Not Available No t Available garlic capsule 12/10 completed Prescrib ed Elsewher e: Yes [facility]oca [facility] By: lara prince DateTime : 07/03/20 12 11:10:07 AM Not Available Not Available Not Available buspirone 7.5 mg tablet 02/24 completed Not Available Not Available Not Available furosemid e 20 mg tablet take 1 tablet (20MG) by oral route every day 02/12 completed Prescrib ed Elsewher e: Yes Loca tion: [facility] odify By: reta Vazquez r DateTime : 12/10/19 14 10:30:00 AM Not Available Not Available Not Available cefdinir 300 mg capsule TAKE 1 CAPSULE BY MOUTH EVERY 12 HOURS FOR 10 DAYS 04/12 completed Not Available Not Available Not Available multivita min capsule Take by oral route. 07/12 /2023 completed Not Available Not Available Not Available amoxicill in 875 mg-potass ium clavulana te 125 mg tablet TAKE 1 TABLET BY MOUTH TWICE DAILY 06/19 completed Not Available Not Available Not Available Bactrim DS 800 mg-160 mg tablet take 1 tablet by oral route every 12 hours 07/05 completed Prescrib ed Elsewher e: No Locat ion: [facility] odify By: evgeny thacker DateTime : 06/29/20 15 10:00:00 AM Not Available Not Available Not Available Allergy Medicine 25 mg capsule take 2 capsule by oral route every 4 - 6 hours as needed 05/30 completed Prescrib ed Elsewher e: Yes Loca tion: [facility] odify By: lynn thacker DateTime : 02/18/20 19 09:30:00 AM Not Available Not Available Not Available Calcium 500 + D 500 mg-5 mcg (200 unit) tablet 05/30 completed Prescrib ed Elsewher e: Yes Loca tion: [facility] odify By: lynn wellsuntmichelle DateTime : 02/18/20 19 09:30:00 AM Not Available Not Available Not Available cyclobenz aprine 5 mg tablet TAKE 1 TABLET BY MOUTH THREE TIMES DAILY NEEDED FOR MUSCLE SPASM 08/11 completed Not Available Not Available Not Available Premarin [...] Elsewher e: No Locat ion: [facility] odify By: lara prince DateTime : 07/03/20 12 11:10:07 AM Not Available Not Available Not Available Infuvite Adult 3300 unit-150 mcg/10 mL intraveno us solution 12/10 completed Prescrib ed Elsewher e: Yes Loca tion: [facility] odify By: lara prince DateTime : 07/03/20 12 11:10:07 AM Not Available Not Available Not Available Calcio Marce 500 mg tablet 12/10 completed Prescrib ed Elsewher e: Yes Loca tion: [facility] odify By: lara prince DateTime : 07/03/20 [...] Elsewher e: No Locat ion: [facility] odify By: lara prince DateTime : 08/12/20 12 09:10:55 AM Not Available Not Available Not Available B Complex 1.7 mg-20 mg-2 mg-1.2 mg/mL sublingua l liquid 12/10 completed Prescrib ed Elsewher e: Yes Loca tion: [facility] odify By: lara prince DateTime : 07/04/20 12 10:00:00 AM Not Available Not Available Not Available 10 mg-[address] by Topical route every USE ASS NEEDED WITH INTERCOU RSE 02/12 completed Prescrib ed Elsewher e: Yes Loca tion: [facility] odify By: reta Vazquez r DateTime : 12/10/19 14 10:30:00 AM Not Available Not Available Not Available Claritin Liqui-Gel 10 mg capsule 02/12 completed Prescrib ed Elsewher e: Yes Loca tion: [facility] odify By: reta Vazquez r DateTime : 12/14/19 15 10:30:00 AM Not Available Not Available Not Available Fish Oil 100 mg-160 mg-1,000 mg capsule 12/10 completed Prescrib ed Elsewher e: Yes Loca tion: [facility] odify By: lara prince DateTime : 07/03/20 12 11:10:07 AM Not Available Not Available Not Available Multi Vitamin 9 mg iron/15 mL oral liquid 04/12 completed Prescrib ed Elsewher e: Yes Loca tion: [facility] odify By: lynn thacker DateTime : 02/18/20 09:30:00 AM Not Available Not Available Not [...] Body mass index (BMI) Body weight Systolic And Diastolic Provider Name and Address Organization Details Last Updated DateTime 04/12/2022 155.58 cm 25.5 kg/m2 94081.56 g 128/78 mm[Hg] Delilah Chow [facility] 04/12/2022 10:03:27 Date Recorded Body height Body mass index (BMI) Body weight Systolic And Diastolic Provider Name and Address Organization Details Last Updated DateTime 05/30/2023 155.58 cm 23.8 kg/m2 79554.23 g 127/76 mm[Hg] Catherine Li [facility] 05/30/2023 11:19:04 Date Recorded Body height Body mass index (BMI) Body weight Systolic And Diastolic Provider Name and Address Organization Details Last Updated DateTime 06/19/2024 155.58 cm 23.4 kg/m2 02210.05 g 137/73 mm[Hg] Wendy Green [facility] 06/19/2024 11:43:27 Date Recorded Systolic And Diastolic Provider Name and Address Organization Details Last Updated DateTime 07/13/2022 122/82 mm[Hg] Lisette Galeano, [facility]- [address], [place], [address], [facility] 07/13/2022 14:05:36 Date Recorded Body height Body weight Body mass index (BMI) Provider Name and Address Organization Details Last Updated DateTime 07/13/2022 155.58 cm 42610.07 g 24.9 kg/m2 Delilah Chow [facility] 07/13/2022 10:31:42 Date Recorded Body height Body mass index (BMI) Body weight Systolic And Diastolic Provider Name and Address Organization Details Last Updated DateTime 08/11/2025 155.58 cm 26.4 kg/m2 91182.52 g 128/74 mm[Hg] Harriet Martel [facility] 08/11/2025 11:32:30 Social History Question Answer Notes LastModified by Organizat ion Details LastModified Time Tobacco Smoking Status Never Smoker David Baker vivian, [facility] 05/30/2023 10:50:59 Do You Have An Advance Directive? No Information n ot available 03/09/2021 Are You Blind Or Do [...] Or The Highest Degree You Have Received? [id number] Information not available 03/09/2021 Are There Any Guns Present In Your Home? Yes Information not available 03/09/2021 Do You Use Protection During Sex? No Information not available 03/09/2021 Do You Use Your Seat Belt Or Car Seat Routinely? Yes Information not available 03/09/2021 Do You Have Smoke And Carbon Monoxide Detectors In Your Home? Yes Information not available 03/09/2021 At What Age Did You Start Smoking Tobacco? 14 [email or web address] Information not available 08/11/2025 How Much Tobacco Do You Smoke? No Information not available 03/09/2021 Do You Use Sunscreen Routinely? Yes Information not available 03/09/2021 How Many Years Have You Smoked Tobacco? 25 [email or web address] Information not available 08/11/2025 Have You Used IV Drugs? No Information not available 03/09/2021 Do You Have Difficulty Walking Or Climbing Stairs? No [email or web address] Information not available 05/30/2023 Sex: Unknown Functional Status Question Answer Note LastModified by Organizat ion Details LastModified Time Do you use any illicit or recreational drugs? No Information not available 03/09/2021 What is your level of alcohol consumption? None Information not available 03/09/2021 Are you able to walk independently without assistance or assistive devices? [email or web address] Information not available 03/09/2021 Are you able to care for yourself independently? Yes [email or web address] Information not available 05/30/2023 What is your occupation? Retired Information not available 03/09/2021 Do you have difficulty dressing, bathing, grooming, or toileting? No [email or web address] Information not available 05/30/2023 What is your exercise level? Moderate Information not available 06/19/2024 Mental Status Question Answer Note LastModified by Organization D etails LastModified Time Do you feel stressed (tense, restless, nervous, or anxious, or unable to sleep at night)? [id number] [email or web address] Information not available 03/09/2021 Family History Relationship Description Onset Age of this Age Resolved Age Notes LastModified by Organization Details LastModified Time Mother Diabetes mellitus [email or web address] Not available 2019 10:30:41 Maternal Grandmother Type 1 diabetes mellitus [email or web address] Not available 2024 11:32:46 Maternal Aunt Malignant neoplasm of breast 45 [email or web address] Not available 2024 11:32:46 Maternal Aunt Malignant neoplasm of breast [email or web address] Not available 2024 11:32:46 Paternal Aunt Malignant neoplasm of ovary 60 [email or web address] Not available 2024 11:32:46 Paternal Aunt Malignant neoplasm of ovary [email or web address] Not available 2024 11:32:46 Medical History Condition Response History of abnormal pap Y Hypertension Y Gynecological History Statement/Question Response Abnormal Pap Yes Date of Last Mammogram Date of LMP 07/03/2006 On BCP's at Conception? N N STIs/STDs N HPV Vaccine N 15 Current Control Method Menopause Age at First Child 18 If Post Menopausal, Age at Menopause Date of Last Colonoscopy Sexually Active? Y Menses Monthly N Date of DEXA bone scan 03/02/2020 Age of first menstrual cycle 12 Date of Last Pap Smear 06/19/2024 Sexual Problems? Y 02/18/2020 N Obstetrics History GPAL:G 2 P 0 0 0 2 Type Value Living 2 Total 2 Past Encounters Encounter ID Performer Location Encounter Start Date Encounter Closed Date Diagnosis/Indication Diagnosis SNOMED-CT Code Diagnosis ICD10 Code Diagnosis IMO Codes Diagnosis Note [id number] Lisette Galeano [facility] [address] [address] 02/25/2020 10:19:33 02/26/2020 13:03:31 Menopausal symptom 26814638 N95.1 Routine gy necologic examination done 2860280394 9101 Z01.419 Menopausal flushing 1983 80052 N95.1 [id number] [facility] [address] [address] 03/09/2021 09:26:33 03/09/2021 10:18:50 Gynecologic examination [id number] Z01.419 Take Calcium with Vitamin D 12-1500mg daily. Do monthly self breast exams. It is advised to get annual flu shot in the fall and she could obtain at [facility] or [facility] care clinic. If you haven't received the Tdap vaccine in the last 10 years you should obtain one as well. Have mammogram yearly, bone density every 2-3 years and colonoscop y every 5-10 years depending on findings and history. Engage in daily exercise of low impact aerobic exercise 45-60 minutes 4-5 times weekly. Avoid tobacco and illicit drugs as well as using moderation with alcohol intake less than 1-2 8 oz beverages daily. This lifestyle behavior pattern will lead to less health conditions and longer life span. If BMI greater than 25 weight watchers or dietary consult advised. Questions have been answered. Patient appears to understand instructio ns, but if you have any further questions call or respond to this email Doing well. NO issues. Normal pap/hpV hx (1-ASCUS only pap in 2014 neg HPV) Last pap/hpv 201702/12/18--w nl Defer pap until 2022 unless otherwise indicated per asccp Mammo ordered Dexa 02/2020 Colon 2019 Generalize d anxiety disorder [id number] F41.1 N95.1 [id number] Lisette Galeano [facility] [address] [address] 04/12/2022 09:36:42 04/12/2022 10:33:59 Gynecologic examination 03620004 Z01.419 Take Calcium with Vitamin D 12-1500mg daily. Do monthly self breast exams. It is advised to get annual flu shot in the fall and she could obtain at [facility] or [facility] clinic. If you haven't received the Tdap vaccine in the last 10 years you should obtain one as well. Have mammogram yearly, bone density every 2-3 years and colonoscop y every 5-10 years depending on findings and history. Engage in daily exercise of low impact aerobic exercise 45-60 minutes 4-5 times weekly. Avoid tobacco and illicit drugs as well as using moderation with alcohol intake less than 1-2 8 oz beverages daily. This lifestyle behavior pattern will lead to less health conditions and longer life span. If BMI greater than 25 weight watchers or dietary consult advised. Questions have been answered. Patient appears to understand instructio garth, but if you have any further questions call or respond to this email Pap/hpv defer until age 63yo unless otherwise indicated per asccp STD Screen declined Genetic Screen discussed Colon Screen UTD PCP Dexa Screen Ordered Routine Labs UTD PCPMammo ordered Depressive disorder 2595 9007 F32.A Happy on current medsWishes to continue.R F sent x 1yr Herpes zoster [id number] B0 2.9 Suppressiv e therapy trialRTO x 3mos med check Dyspareunia [id number] N94 .10 N95.2 Trial of Vag estrogen Counseled on medication R/B's, Most common side effects, & use. All questions were answered to patient satisfacti on. RTO x 3mos med/vulvar check [id number] [facility] [address],[place] [address] 07/13/2022 10:19:11 07/13/2022 14:13:44 Herpes zoster 7802826 B02.9 Suppressiv e therapy trial successful .We will continue for the rest of the year & then re-evaluat e at next visit the need for this medication suppressiv e therapy.No side effects reported.R F sent F/U x 1yr or prn Time spent in visit is a total of 15 mins with at least 50% of visit consisting of counseling and review of plan of care. Dyspareunia [id number] N94 .10 N95.2 Tried Vag E therapy.Ve ry expensive almost $100Will call if wants to return to using this therapy & we can see if there is a speciality pharmacy or other for a more affordable cost.Cici nue to use crisco vag moisturize r. [id number] CHARLINE Carbajal [facility] [address],[place] [address] 05/30/2023 10:50:47 05/30/2023 12:22:44 Screening for malignant neoplasm of breast [id number] Z12.39 Screening for malignant neoplasm of colon 539889575 Z12.11 Screening for osteoporosis 946423793 Z13.820 Gynecologi c examination 02224565 Z01.419 Take Calcium with Vitamin D 12-1500mg daily. Do monthly self breast exams. It is advised to get annual flu shot in the fall and she could obtain at [facility] or [facility] care clinic. If you haven't received the Tdap vaccine in the last 10 years you should obtain one as well. Have mammogram yearly, bone density every 2-3 years and colonoscop y every 5-10 years depending on findings and history. Engage in daily exercise of low impact aerobic exercise 45-60 minutes 4-5 times weekly. Avoid tobacco and illicit drugs as well as using moderation with alcohol intake less than 1-2 8 oz beverages daily. This lifestyle behavior pattern will lead to less health conditions and longer life span. If BMI greater than 25 weight watchers or dietary consult advised. Questions have been answered. Patient appears to understand instructio ns, but if you have any further questions call or respond to this email WWEpostmen opausalhx of abnormal pap 2014 - all normals sincelast pap 2018 - normalpap updated todaySTI testing declinedma mmogram order givendexa order givencolon CA screenings discussed. Cologuard last 5 years ago, order sentUTD with PCPRTC in 1 year or sooner if needed [id number] Awais Cordero MD [facility] [address] [address] 06/19/2024 11:00:38 06/19/2024 12:27:14 Herpes zoster [id number] B02.9 Depressive disorder 3548 9007 F32.A Gynecologi c examination 29110561 Z01.419 Annual gynecologi phylicia exam performed. Patient will come back in a year unless there are new symptoms. Suggest Calcium with Vitamin D if not eating in diet. Patient advised to get annual flu shot. Recommend yearly physicals and preform monthly breast exams. Genetic testing is available for patients with family history of cancer. Engage in safe sexual practices, use condoms. Encouraged to have daily exercise. Avoid tobacco and illicit drugs, moderation of alcohol. If BMI greater than 25 dietary consult advised. If you have any questions please call or email. mammogram- ordered colon cancer screening - to do cologuard DEXA scan- done Pap smear- today laboratory evaluation - done [id number] CHARLINE Carbajal [facility] [address] [address] 08/11/2025 11:04:48 08/11/2025 13:52:33 Gynecologic examination [id number] Z01.530 [id number] WWEpostmen opausalPap - pap not indicated todaySTI screen - declinedMa mmogram - order givenColon cancer screening - order for cologuardD exa - UTD, due 2025Routin e labs - PCPRTC in 1 yr or sooner if needed Do monthly self breast exams.It is advised to get annual flu shot in the fall and she could obtain at local pharmacy. If you haven't received the Tdap vaccine in the last 10 years you should obtain one as well.Have mammogram yearly, bone density every 2-3 years and stay up to date on colon cancer screening. Engage in regular exercise. Avoid tobacco and illicit drugs. This lifestyle behavior pattern will lead to less health conditions and longer life span. If BMI greater than 25 dietary consult advised.Qu estions have been answered. Screening mammography 24 011925 Z12.31 [id number] Screening for malignant neoplasm of breast 328319940 Z12.31 Depressive disorder 3548 0307 F32.A stable on current therapy and desires to continuere fills sent x 12 months, r/b/a reviewed Recurrent genital herpes simplex [id number] A60.00 [id number] Discussed decreasing valtrex dose, declines 500mg daily as she was having frequent outbreaks on that. We agreed to decrease to 1g daily with the goal of decreasing to 500mg daily if frequent outbreaks do not occur. Health Concerns Section Related Observation LastModified by Organization Detai ls LastModified Time None Recorded Concern Status LastModified by Organization Details LastModified Time None Recorded Advance Directives Directive N: Payers Insurance Date Sequence Insurance Name Policy Number Policy Gordon Covered Member ID Gordon Member ID Guarantor Name 03/02/2020 1 [place]/A DVANTAGE - PPO) [id number] Jacek Kumar [id number] Jacek Kumar 08/08/2025 1 [place] [id number] Jacek Kumar [id number] Jacek Kumar Notes Date Note Type Note Provider Name and Address Organization Details Recorded Time 04/12/20 22 text/htm l Annual Hoister Post-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ed by PatientGenitourinary symptomsFor menopausal symptoms, patient reportsno menopausal symptomsandnormal vaginal lubrication. For vaginal bleeding, patient reportshistory of menopause having occurredandno history of post menopausal bleeding. For urinary symptoms, patient reportsno hematuria,no incontinence,no nocturia, andno urinary frequency. For vulva, patient reportsno genital lesionandno vulvar atrophy. For vagina, patient reportsnormal vaginal dischargeandno vaginal atrophy.Breast symptomsFor breast, patient reportsno breast lump,no nipple discharge, andno breast pain.Psychological symptomsFor sexual complaints, patient reportspain during intercoursebut reportsno sexual complaints. For psychological symptoms, patient reportsno depressionandno anxiety.Preventative measuresFor preventive measures, patient reportsencourage regular mammograms starting age 40,encourage self breast examination,encourage regular exercise,encourage no tobacco use,needs to schedule mammogram,history of recent colonoscopy, andneeds to schedule bone density. Having shingles outbreaksGot vaccinationLower back one small areaHappens during high stress times Lisette Galeano [facility] [address], [place], [address], [facility] 04/12/2022 10:33:09 07/13/20 22 text/htm l ROS as noted in the HPI Here today for medication check. Lisette [facility] [address], [place], [address], [facility] 07/13/2022 14:06:03 05/30/20 23 text/htm l Annual Hoister Post-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ed by PatientGenitourinary symptomsFor menopausal symptoms, patient reportsno menopausal symptomsandnormal vaginal lubrication. For vaginal bleeding, patient reportshistory of menopause having occurredandno history of post menopausal bleeding. For urinary symptoms, patient reportsno hematuria,no incontinence,no nocturia, andno urinary frequency. For vulva, patient reportsno genital lesionandno vulvar atrophy. For vagina, patient reportsnormal vaginal dischargeandno vaginal atrophy.Breast symptomsFor breast, patient reportsno breast lump,no nipple discharge, andno breast pain.Psychological symptomsFor sexual complaints, patient reportsno sexual complaints. For psychological symptoms, patient reportsno depressionandno anxiety.Preventative measuresFor preventive measures, patient reportsencourage regular mammograms starting age 40,encourage self breast examination,encourage regular exercise,encourage no tobacco use,needs to schedule mammogram,needs to schedule colonoscopy, andneeds to schedule bone density. CHARLINE Carbajal [address], [place], [address], [facility] 05/30/2023 12:18:43 06/19/20 24 text/htm l Annual GYNReported by PatientHistoryFor history, patient reportsno gynecologic complaints.Genitourinary symptomsFor urinary symptoms, patient reportsno hematuria. For vulva, patient reportsno genital lesion. For vagina, patient reportsnormal vaginal discharge.Breast symptomsFor breast, patient reportsno breast painandno breast lump.Endocrine symptomsFor sexual complaints, patient reportsno sexual complaints. For menopausal symptoms, patient reportsno menopausal symptoms.Psychological symptomsFor psychological symptoms, patient reportsanxiety(treated).Pre ventative measuresFor preventive measures, patient reportsencourage self breast examinationandencourage regular exercise. Awais Cordero MD [address], [place], [address], [facility] 06/19/2024 12:24:57 08/11/20 25 text/htm l Annual Hoister Post-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ed by PatientGenitourinary symptomsFor menopausal symptoms, patient reportsno menopausal symptomsandnormal vaginal lubrication. For vaginal bleeding, patient reportshistory of menopause having occurredandno history of post menopausal bleeding. For urinary symptoms, patient reportsno hematuria,no incontinence,no nocturia, andno urinary frequency. For vulva, patient reportsno genital lesionandno vulvar atrophy. For vagina, patient reportsnormal vaginal dischargeandno vaginal atrophy.Breast symptomsFor breast, patient reportsno breast lump,no nipple discharge, andno breast pain.Psychological symptomsFor sexual complaints, patient reportsno sexual complaints. For psychological symptoms, patient reportsno depressionandno anxiety.Preventative measuresFor preventive measures, patient reportsencourage regular mammograms starting age 40,encourage self breast examination,encourage regular exercise, andencourage no tobacco use.64yo wwepostmenopausallast pap 06/2024 : nilm, HPV (-)no h/o abnormal papsmammogram last 10/2024needs cologuard orderdexa last 2023 Pt states she has been taking valtrex 1g twice daily for HSV suppressionon fluoxetine which has been controlling depressive symptoms Julieth Malagon, [facility] [address], [place], [address], [facility] 08/11/2025 13:45:09 OBGyn Episode Ob Episode Information Episode Created Date Number of Fetuses Patient Bloodtype Patient rh Status Prepregnancy Weight lbs Domestic Partner Domestic Partner Phone Father Name Otter Trawler Boatswain Status 02/25/20 20 1 CLOSED Fetus Data First Name Last Name Admitted to NICU Weight (g) Sex Living Outcome Pediatric Complications Fetus ID Race Codes Race Delivery Type 3628.73 6 F 104 Primary Atul Calculation Initial Atul Date Initial Exam Date Initial Exam Provider Initial Ultrasound Date Last Menstrual Period Date Ultra Sound Weeks Gestation 0 Eighteen To Twenty Week Atul Update Ultra Sound Date Fundal Height At Umbil Quickening Date Ultra Sound Latest Weeks Gestation Final Atul Confirmed By Final Atul Confirmed Date Final Atul Date Ultra Sound Latest Days Gestation 0 [...] Domestic Partner Domestic Partner Phone Father Name Otter Trawler Boatswain Status 02/25/20 20 1 CLOSED Fetus Data First Name Last Name Admitted to NICU Weight (g) Sex Living Outcome Pediatric Complications Fetus ID Race Codes Race Delivery Type 4819.41 5 M 106 Vaginal Delivery Atul Calculation Initial Atul Date Initial Exam Date Initial Exam Provider Initial Ultrasound Date Last Menstrual Period Date Ultra Sound Weeks Gestation 0 Eighteen To Twenty Week Atul Update Ultra Sound Date Fundal Height At Umbil Quickening Date Ultra Sound Latest Weeks Gestation Final Atul Confirmed By Final Atul Confirmed Date Final Atul Date Ultra Sound Latest Days Gestation 0 [...] Domestic Partner Domestic Partner Phone Father Name Otter Trawler Boatswain Status 02/25/20 20 1 DELETED Atul Calculation Initial Atul Date Initial Exam Date Initial Exam Provider Initial Ultrasound Date Last Menstrual Period Date Ultra Sound Weeks Gestation 0 Eighteen To Twenty Week Atul Update Ultra Sound Date Fundal Height At Umbil Quickening Date Ultra Sound Latest Weeks Gestation Final Atul Confirmed By Final Atul Confirmed Date Final Atul Date Ultra Sound Latest Days Gestation 0 [...]
--- OUTSIDE RECORDS SUMMARY | 2025-11-11 08:52 | XMS_ITS | Clinical Summary ---
Author Organization [facility] Address [address] [facility] Attn: Epic Prelude ADT JUSTIN SILVA [address] Care Team Providers Care Plastic Surgeon Name Role Phone Anurag Beasley MD Primary Care Provider [phone] Active Problems Patient Care Coordination No te Formatting of this note migh t be different from the original. PCP: Dr. Lopez Harris - [place], [place]. 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 Gender Identity Not on file Sexual Orientation Not on file Plan of Treatment Health Maintenance Due Date Last Done Comments DTAP/TDAP/TD VACCINES (1 - Tdap) 1978 COLORECTAL SCREENING 2004 Colorectal Cancer Screening 2004 FIT-DNA Q 3 years 2004 FIT/FOBT Q 1 year 2004 Flex Sig/CT Colonography Q 5 years 2004 PNEUMOCOCCAL VACCINE 50+ YEA RS (1 of 1 - PCV) 2009 ZOSTER VACCINE (1 of 2) 2009 BREAST CANCER SCREENING 04/19/2022 04/19/20 21, 04/19/2021, 03/02/2020, Additional history exists OSTEOPOROSIS SCREENING 03/02/2025 03/02/2020, 2016 INFLUENZA VACCINE (#1) 2025 RSV VACCINE (60+ or ) (1 - 1-dose 75+ series) 2034 Care Teams Plastic Surgeon Relationship Specialty Start Date End Date Anurag Beasley MD [address] [place] [address] PCP - General Family Practice 02/16/21
--- OUTSIDE RECORDS SUMMARY | 2025-11-11 08:52 | XMS_ITS | Clinical Summary ---
Author Organization [facility] Address [address] [facility] [place] [address] Care Team Providers Care Speed Winder Name Role Phone Anurag Beasley MD Primary Care Provider [phone] Source Comments [facility],non-owned Affiliates and Associated Physician Practices is amultiple site organization consisting of ambulatory clinics and hospital sitesin [place], [place], [place] and [place]. This disclosure is being madepursuant to the Care Everywhere program and may not contain all information available regarding this patient. Last updated 18.[facility] Allergies Active Allergy Reactions Criticality Noted Date Comments Sulfacetamide Nausea and/or Vomiting Low 02/26/2024 Medications * Be aware that medications may not be up to date on this document. Alwaysverify current medications with the patient. FLUoxetine (PROzac) 40 MG capsule Take 1 (one) capsule by mouth once daily Active multivitamin daily (THERAGRAN) tablet Take 1 (one) tablet by mouth once daily Active Other Take 1 Each by mouth once daily bariatric1 Active calcium carbonate-vitam in D 600-200 MG-UNIT tablet Take 1 (one) tablet by mouth 2 times daily Active Vitamin D, Cholecalciferol , 25 MCG (1000 UT) CAPS Take by mouth 2 times daily Active busPIRone (BUSPAR) 10 MG tablet Take 1 (one) tablet by mouth as needed Active cranberry (CRANBERRY) 400 MG tablet Take 1 (one) tablet by mouth once daily Active Multiple Vitamins-Minera ls (HAIR SKIN NAILS PO) Active TURMERIC PO Active valACYclovir (Valtrex) 500 MG tablet 04/12/2022 Active diphenhydrAMINE (Benadryl) 25 MG capsule Take 1 (one) capsule by mouth as directed Active Active Problems Problem Noted Date Diagnosed Date Allergic rhinitis due to grass pollen 04/09/2024 Urinary incontinence 06/19/2011 02/27/2024 Overview (02/27/2024): Urinary incontinence, unspecified;Practice ID: [id number] Immunizations Immunization Administration Dates Next Due INFLUENZA VACCINE, QUADR. 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 Gender Identity Not on file Sexual Orientation [...] 10:14 AM CDT Height 157.5 cm (5' 2) 02/26/2024 10:14 AM CDT Body Mass Index [...] 50+ (1 of 1 - PCV) 2009 DEPRESSION SCREENING 11/19/2024 COVID-19 VACCINE ( - 2024-2 6 season) 2025 10/16/2021, 03/08/2021, 02/13/2021 INFLUENZA VACCINE (#1) 2025 , 09/26/2019, 09/07/2018 PAP SMEAR 05/30/2026 05/30/2023, 05/30/2023 DTAP/TDAP/TD VACCINES (2 - T d [...] on patient's age to complete this topic Insurance ANTHEM Advance Directives * Full Code (Latest Code Status on File) Date Activated Date Inactivated Comments 06/25/2017 1:38 PM 06/26/2017 6:26 PM Care Teams Speed Winder Relationship Specialty Start Date End Date Anurag Beasley MD [address] [place] [address] PCP - General Family Medicine 04/09/24
--- OUTSIDE RECORDS SUMMARY | 2025-11-11 08:52 | XMS_ITS | Clinical Summary ---
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 Gender Identity Not on file Sexual Orientation Not on file Plan of Treatment Health Maintenance Due Date Last Done Comments Hepatitis C Virus (HCV) Screening 1959 TdaP Immunization 1959 Pap Smear 1980 Cervical Cancer Screening (CCS) 1989 HPV/Cotest 1989 Cologuard 2004 Colonoscopy 2004 Colorectal Cancer Screening 2004 Immunochemical Fecal Occult Blood 2004 Pneumococcal Immunization (5 0+ years) (1 of 1 - PCV) 2009 Zoster Immunization (1 of 2) 2009 Influenza Immunization (#1) 2025 SARS-COV-2 Immunization ( - 2023- season) 2025 Respiratory Syncytial Virus (RSV) Immunization (Adult) (1 - 1-dose 75+ series) 2034 Hepatitis B Immunization Aged Out No longer eligible based on patient's age to complete this topic Human Papillomavirus (HPV) Immunization Aged Out No longer eligible b ased on patient's age to complete this topic Meningococcal Immunization (ACWY) Aged Out No longer eligible based on patient's age to complete this topic Rotavirus Immunization Aged Out No lo nger eligible based on patient's age to complete this topic
--- OUTSIDE RECORDS SUMMARY | 2025-11-11 08:52 | XMS_ITS | Clinical Summary ---
Author Organization [facility] Address [address] [place] [address] Care Team Providers Care Financial Officer Name Role Phone Unavailable Primary Care [...] Health Maintenance Due Date Last Done Comments Colorectal Cancer Screening Colonoscopy (10 Years) 1959 Hepatitis C 1977 DTaP, Tdap and Td Vaccines ( 1 - Tdap) 1978 Mammogram Screening 1999 Pneumococcal Vaccine: 50+ Ye ars (1 of 1 - PCV) 2009 Zoster Vaccines (1 of 2) 2009 Dexa Scan (General) 2024 COVID-19 Vaccine ( - 2024-2 6 season) 2025 Influenza Adult (#1) 2025 RSV Immunization or 60+ Years (1 - 1-dose 75+ series) 2034 Hepatitis A Vaccines Aged Out No long er eligible based on patient's age to complete this topic Meningococcal B Vaccine Aged Out No l onger eligible based on patient's age to complete this topic Meningococcal Vaccine Aged Out No patricia keenan eligible based on patient's age to complete this topic RSV Immunizations Under 20 Months Aged Out No longer eligible based on patient's age to complete this topic
== END 2025-11-11 08:46 | disposition home or self-care (01) ==
LOC: ANHFOHIMG 08:49
PROVIDERS: PCP Family Medicine; Visit Provider Obstetrics & Gynecology
DX: Z12.31 Encounter for screening mammogram for malignant neoplasm of breast (principal)
CPT/HCPCS: 77063; 77067